=== PATIENT | male | born 1960 | race African-American/Black ===

== ENCOUNTER 2018-10-09 23:47 | Emergency (ER) | payer OTHER ==
[~2018-10-09] VITALS: Ht 165.1 cm; Wt 59.0 kg
--- OUTSIDE RECORDS SUMMARY | 2018-10-09 23:50 | XMS REPORT ---
Author Author [facility] Address Unknown Phone Unavailable Care Team Providers Care Manufacturing Coordinator Name Role Phone RICO HERRERA OBRIEN Unavailable Unavailable ABIEL AGEE Unavailable Unavailable AIMEECASSY Unavailable Unavailable Problems This patient has no known problems. Allergies, Adverse Reactions, Alerts This patient has no known allergies or adverse reactions. Medications This patient has no known medications. Results Test Description Test Time Test Comments Text Results Atomic Results Result Comments LOUIE CARROLL CATH CENTRAL INS W/PORT C 2018-09-14 13:37:00 Reason for Exam:->C25.9 FINAL REPORT Procedure: Chest port placement. History: Pancreatic cancer Operators: Bina Conscious Sedation: Versed 3 mg, fentanyl 150 mcg, (Administered after informed consent was obtained) Vital signs were monitored throughout the procedure by a nurse, and remained stable. Physician intra-service time was 30 minutes. Total fluoroscopy time: 11 seconds Estimated dose reported as ( Ka, r): 0.1 mGy Technique: Informed written consent was obtained. The right neck and chest were prepped. All elements maximal sterile barrier technique was utilized for this procedure, including utilization of sterile scrub solution for skin prep, a large sterile sheet to cover the areas of the patient that were not prepped, and hand hygiene, mask, head covering, and sterile gown for performing radiologist and scrub technologist. Under direct real-time ultrasound guidance the right internal jugular vein was accessed with a micropuncture needle. A 5 [place] sheath and dilator was placed. A 3 J-wire was then advanced and the access site was dilated. A 7 [place] peel-away introducer sheath was then placed. The distal end of the 5 [place] port catheter was then advanced through the peel-away and placed with tip under fluoroscopic control at the atriocaval junction. The proximal end of the catheter was then back tunneled on the anterior chest. A subcutaneous pocket was then made. The catheter was then attached to a single-lumen port which was placed into the pocket and anchored with 2 Monocryl sutures. The port flushed and aspirated easily following placement and was packed with 5cc of Heparin at 100U/cc (total dosage of 500U). The overlying skin was closed with interrupted subcuticular sutures. Steri-strips and dressing was applied. There are no immediate complications. The patient tolerated the procedure well and left the department in the same condition. Findings: 1. Inital ultrasound evaluation prior to port placement showed a patent and compressible right internal jugular vein. An ultrasound image was saved to PACS. 2. Spot radiograph following port placement revealed appropriate positioning with the tip projecting at the cavoatrial junction. No immediate pneumothorax identified. Impression: Successful placement of a single-lumen right-sided chest port using sonographic and fluoroscopic guidance and conscious sedation. The tip is satisfactorily positioned at the atriocaval junction. A "Power" port rated for power CT injections was placed. Signed: Savage Curran MDReport Verified Date/Time: 09/14/2018 13:37:17 Reading Location: [facility] Radiology Reading Room W/PLT COUNT & AUTO DIFFERENTIAL 2018-09-14 11:45:00 WHITE BLOOD CELL COUNT (BEAKER) (test potk=819) 8.0 K/ L 4.0-10.0 RED BLOOD CELL COUNT (BEAKER) (test vxzl=355) 4.34 M/ L 4.20-5.80 HEMOGLOBIN (BEAKER) (test rxnb=748) 12.0 GM/DL 13.0-16.8 HEMATOCRIT (BEAKER) (test yjat=304) 37.9 % 36.0-50.0 MEAN CORPUSCULAR VOLUME (BEAKER) (test qybn=032) 87.3 fL 82.0-99.0 MEAN CORPUSCULAR HEMOGLOBIN (BEAKER) (test saiw=387) 27.6 pg 27.0-33.0 MEAN CORPUSCULAR HEMOGLOBIN CONC (BEAKER) (test rcqe=266) 31.7 GM/DL 32.0-36.0 RED CELL DISTRIBUTION WIDTH (BEAKER) (test mpmt=598) 13.4 % 12.0-15.0 PLATELET COUNT (BEAKER) (test vtwz=818) 314 K/CU MM 150-430 MEAN PLATELET VOLUME (BEAKER) (test kcbg=342) 9.8 fL 6.0-11.5 NUCLEATED RED BLOOD CELLS (BEAKER) (test evvo=178) 0 /100 WBC 0-0 (MANUAL DIFFERENTIAL)2018-09-14 11:45:00* Test Item Value Reference Range Comments NEUTROPHILS - REL (DIFF) (BEAKER) (test yffi=8756) 61 % LYMPHOCYTES - REL (DIFF) (BEAKER) (test jrrh=2221) 12 % MONOCYTES - REL (DIFF) (BEAKER) (test gkla=6907) 10 % EOSINOPHILS - REL (DIFF) (BEAKER) (test higx=6464) 13 % ATYPICAL LYMPHOCYTE - REL (DIFF) (BEAKER) (test nplm=621) 4 % 0-0 NEUTROPHILS - ABS (DIFF) (BEAKER) (test ohtu=1565) 4.88 K/ L 1.80-8.00 LYMPHOCYTES - ABS (DIFF) (BEAKER) (test mkde=7088) 0.96 K/ L 1.48-4.50 MONOCYTES - ABS (DIFF) (BEAKER) (test fiku=9379) 0.80 K/ L 0.00-1.30 EOSINOPHILS - ABS (DIFF) (BEAKER) (test pwwe=9766) 1.04 K/ L 0.00-0.50 ATYPICAL LYMPHOCYTES - ABS (DIFF) (BEAKER) (test rydu=307) 0.32 K/ L 0.00-0.00 TOTAL COUNTED (BEAKER) (test aevs=0970) 100 WBC MORPHOLOGY (BEAKER) (test nezg=925) Normal PLT MORPHOLOGY (BEAKER) (test oenj=375) Normal RBC MORPHOLOGY (BEAKER) (test rwyw=392) Normal [id number] 11:39:00* Test Item Value Reference Range Comments PROTIME (BEAKER) (test wivb=273) 11.1 sec 9.3-12.0 INR (BEAKER) (test uzka=903) 1.0 <=5.9 PARTIAL THROMBOPLASTIN TIME (BEAKER) (test wczu=128) 29.3 sec 23.0-35.0 RECOMMENDED COUMADIN/WARFARIN INR THERAPY RANGESSTANDARD DOSE: 2.0 - 3.0 Inclu francisco: PROPHYLAXIS for venous thrombosis, systemic embolization; TREATMENT for gloria ous thrombosis and/or pulmonary embolus.HIGH RISK: Target INR is 2.5-3.5 for pat ients with mechanical heart valves.Final Information (Auto Output)Final Informat ion (Auto Output)Final Information (Auto Output)POCT-GLUCOSE [id number] 11:10:00* Test Item Value Reference Range Comments POC-GLUCOSE METER (BEAKER) (test qewv=2222) 128 mg/dL 70-110 TESTED AT [facility] [address] [place] [address] POCT-GLUCOSE [id number] 11:35:00* Test Item Value Reference Range Comments POC-GLUCOSE METER (BEAKER) (test wgyh=5484) 218 mg/dL 70-110 TESTED AT [address] [address] HEPATIC FUNCTION [id number] 11:02:00* Test Item Value Reference Range Comments TOTAL PROTEIN (BEAKER) (test lsko=413) 6.8 gm/dL 6.0-8.3 ALBUMIN (BEAKER) (test etms=9101) 3.4 g/dL 3.5-5.0 BILIRUBIN TOTAL (BEAKER) (test uscn=697) 18.4 mg/dL 0.2-1.2 BILIRUBIN DIRECT (BEAKER) (test nmwz=433) 13.0 mg/dL 0.1-0.5 ALKALINE PHOSPHATASE (BEAKER) (test gxmh=730) 1058 U/L 40-150 AST (SGOT) (BEAKER) (test oljk=538) 699 U/L 5-34 ALT (SGPT) (BEAKER) (test lhvc=658) 628 U/L 6-55 Specimen markedly ictericPOCT-GLUCOSE [id number] 08:26:00* Test Item Value Reference Range Comments POC-GLUCOSE METER (BEAKER) (test tuac=9611) 213 mg/dL 70-110 TESTED AT [address] [address] POCT-GLUCOSE [id number] 00:19:00* Test Item Value Reference Range Comments POC-GLUCOSE METER (BEAKER) (test esue=2994) 188 mg/dL 70-110 TESTED AT [address] [address] POCT-GLUCOSE [id number] 08:34:00* Test Item Value Reference Range Comments POC-GLUCOSE METER (BEAKER) (test roch=9796) 119 mg/dL 70-110 TESTED AT [address] [address] HEPATIC FUNCTION [id number] 07:37:00* Test Item Value Reference Range Comments TOTAL PROTEIN (BEAKER) (test wqph=707) 6.4 gm/dL 6.0-8.3 ALBUMIN (BEAKER) (test xvbf=6169) 3.4 g/dL 3.5-5.0 BILIRUBIN TOTAL (BEAKER) (test iawq=785) 18.6 mg/dL 0.2-1.2 BILIRUBIN DIRECT (BEAKER) (test jhgd=957) 13.7 mg/dL 0.1-0.5 ALKALINE PHOSPHATASE (BEAKER) (test hbxp=786) 921 U/L 40-150 AST (SGOT) (BEAKER) (test zpmx=604) 706 U/L 5-34 ALT (SGPT) (BEAKER) (test taif=423) 558 U/L 6-55 Specimen markedly ictericPOCT-GLUCOSE [id number] 17:55:00* Test Item Value Reference Range Comments POC-GLUCOSE METER (BEAKER) (test bgrt=3938) 122 mg/dL 70-110 TESTED AT [place] [id number] [place], [id number] 16:29:00INTRA OP IMAGINGReason for exam:->obstructive jaundiceFINAL REPORT ERCP 3 views 02/21/2018 4:29 PM CLINICAL HISTORY: Instrument localization COMPARISON: None available IMPRESSION: Please correlate imaging report findings with the procedure note prepared by Dr. Stephenson, as an intra-procedure imaging consultation was not requested. Reported fluoroscopy time: 31.3 seconds. Signed: Tee Mercer Verified Date/Time: 02/21/2018 16:29:24 Reading Location: [address] Neuro Reading Room -GLUCOSE [id number] 16:28:00* Test Item Value Reference Range Comments POC-GLUCOSE METER (BEAKER) (test yvdr=0523) 131 mg/dL 70-110 TESTED AT [facility] [address] [facility] [facility] [address] POCT-GLUCOSE [id number] 10:11:00* Test Item Value Reference Range Comments POC-GLUCOSE METER (BEAKER) (test ggnn=7307) 146 mg/dL 70-110 TESTED AT [facility] [address] [address] URINALYSIS W/ [id number] 07:40:00* Test Item Value Reference Range Comments COLOR (BEAKER) (test rpgb=278) Dark Yellow CLARITY (BEAKER) (test undv=894) Clear SPECIFIC GRAVITY UA (BEAKER) (test etzk=364) 1.019 1.001-1.035 PH UA (BEAKER) (test ijus=390) 7.0 5.0-8.0 PROTEIN UA (BEAKER) (test shxu=211) 20 mg/dL Negative GLUCOSE UA (BEAKER) (test tvcj=498) Negative Negative KETONES UA (BEAKER) (test gqxb=077) 80 mg/dL Negative BILIRUBIN UA (BEAKER) (test rxda=502) Positive Negative BLOOD UA (BEAKER) (test fpzu=556) Negative Negative NITRITE UA (BEAKER) (test yyfv=737) Negative Negative LEUKOCYTE ESTERASE UA (BEAKER) (test uiwq=234) Negative Negative UROBILINOGEN UA (BEAKER) (test mfdi=244) 0.2 mg/dL 0.2-1.0 RBC UA (BEAKER) (test ypvl=945) < /HPF WBC UA (BEAKER) (test rybr=272) 1 /HPF MUCUS (BEAKER) (test ctip=0611) Occasional CALCIUM OXALATE CRYSTALS (BEAKER) (test tnlo=142) Rare AMORPHOUS CRYSTALS (BEAKER) (test nmuq=4984) Rare SOURCE(BEAKER) (test kyfs=5023) Urine, Voided CT, [id number] 07:23:00FINAL REPORT CT scan of the abdomen and pelvis. Clinical history: Lower abdominal pain, possible small bowel obstruction, possible diverticulitis. COMPARISON STUDY: CT scan of the abdomen and pelvis dated January 25, 2018. TECHNIQUE: Contiguous helical slices were acquired through the abdomen and pelvis post administration of intravenous contrast. No oral contrast was administered. This exam was performed according to our department dose optimization program which includes automated exposure control, adjustment of the mA and/or kV according to the patient's size and/or use of iterative reconstruction technique. FINDINGS: Multiple small nodules are seen in the lung bases, as noted on recent chest CT. They include a 4 mm nodule in the right middle lobe, 5 mm nodule in the right lower lobe and several other punctate nodules. Atelectasis or consolidation is seen in the lung bases. The liver demonstrates no focal masses. A stent is seen in the CBD with mild to moderate intrahepatic biliary dilatation. The portal vein is widely patent measuring 1.4 cm. Dilatation of the pancreatic duct is seen measuring up to 4 mm with a 3.0 x 2.7 cm mass in the pancreatic head identified. The spleen, adrenal glands and kidneys are unremarkable. Some gallbladder wall thickening is identified. There are no dilated loops of bowel seen to suggest obstruction. No evidence of appendicitis is seen. There is no free fluid or free air. Indeterminant peripancreatic lymph nodes are seen measuring up to 1.2 cm in short axis. The aorta is normal in caliber. No small bowel obstruction or diverticulitis are seen. Bone windows demonstrate degenerative changes. IMPRE SSION:1. Nodules in the lung bases. Please refer to recent chest CT. This is lashae picious for metastatic disease.2. Stent in the CBD with mild to moderate biliary dilatation, more pronounced than on previous.3. Mass in the pancreatic head, as on previous.4. No evidence of diverticulitis or small bowel obstruction. Signed: Forest Araiza MDReport Verified Date/Time: 02/21/2018 07:23:40 Reading Loca tion: [facility] B1 C013X [facility] Consult Reading Room TIC FUNCTION [id number] 06:16:00* Test Item Value Reference Range Comments TOTAL PROTEIN (BEAKER) (test qgmc=055) 6.9 gm/dL 6.0-8.3 ALBUMIN (BEAKER) (test thoo=9135) 3.8 g/dL 3.5-5.0 BILIRUBIN TOTAL (BEAKER) (test tyuq=047) 19.1 mg/dL 0.2-1.2 BILIRUBIN DIRECT (BEAKER) (test davb=189) 13.1 mg/dL 0.1-0.5 ALKALINE PHOSPHATASE (BEAKER) (test exmr=268) 698 U/L 40-150 AST (SGOT) (BEAKER) (test xdsp=783) 471 U/L 5-34 ALT (SGPT) (BEAKER) (test katw=615) 429 U/L 6-55 Specimen markedly [id number] 06:16:00* Test Item Value Reference Range Comments LIPASE (BEAKER) (test izes=942) 5 U/L 8-78 Specimen markedly ictericBASIC METABOLIC [id number] 05:10:00* Test Item Value Reference Range Comments SODIUM (BEAKER) (test fjuz=802) 138 meq/L 136-145 POTASSIUM (BEAKER) (test vfuq=366) 3.5 meq/L 3.5-5.1 CHLORIDE (BEAKER) (test gqwa=196) 98 meq/L 98-107 CO2 (BEAKER) (test bkft=269) 29 meq/L 22-29 BLOOD UREA NITROGEN (BEAKER) (test gxfb=295) 7 mg/dL 7-21 CREATININE (BEAKER) (test uhjt=590) 0.85 mg/dL 0.57-1.25 GLUCOSE RANDOM (BEAKER) (test zqyr=654) 159 mg/dL 70-105 CALCIUM (BEAKER) (test yxld=057) 9.3 mg/dL 8.4-10.2 EGFR (BEAKER) (test osmq=2347) 113 mL/min/1.73 sq m ESTIMATED GFR IS NOT ACCURATE CREATININE CLEARANCE IN PREDICTING GLOMERULAR FILTRATION RATE. ESTIMATED GFR IS NOT APPLICABLE FOR DIALYSIS PATIENTS. Specimen markedly ictericCBC W/PLT COUNT & AUTO [id number] 04:52:00 * Test Item Value Reference Range Comments WHITE BLOOD CELL COUNT (BEAKER) (test bbuw=148) 9.2 K/ L 3.5-10.5 RED BLOOD CELL COUNT (BEAKER) (test dywk=066) 3.85 M/ L 4.63-6.08 HEMOGLOBIN (BEAKER) (test mgcv=906) 11.3 GM/DL 13.7-17.5 HEMATOCRIT (BEAKER) (test znvi=181) 33.8 % 40.1-51.0 MEAN CORPUSCULAR VOLUME (BEAKER) (test cpxx=194) 87.8 fL 79.0-92.2 MEAN CORPUSCULAR HEMOGLOBIN (BEAKER) (test plko=780) 29.4 pg 25.7-32.2 MEAN CORPUSCULAR HEMOGLOBIN CONC (BEAKER) (test pngl=648) 33.4 GM/DL 32.3-36.5 RED CELL DISTRIBUTION WIDTH (BEAKER) (test npyu=287) 17.1 % 11.6-14.4 PLATELET COUNT (BEAKER) (test ijzc=034) 255 K/CU MM 150-450 MEAN PLATELET VOLUME (BEAKER) (test ouqz=833) 10.1 fL 9.4-12.4 NUCLEATED RED BLOOD CELLS (BEAKER) (test fneq=798) 0 /100 WBC 0-0 NEUTROPHILS RELATIVE PERCENT (BEAKER) (test jvve=883) 77 % LYMPHOCYTES RELATIVE PERCENT (BEAKER) (test skna=445) 12 % MONOCYTES RELATIVE PERCENT (BEAKER) (test qumn=598) 10 % EOSINOPHILS RELATIVE PERCENT (BEAKER) (test czeg=881) 1 % BASOPHILS RELATIVE PERCENT (BEAKER) (test uope=190) 0 % NEUTROPHILS ABSOLUTE COUNT (BEAKER) (test jjna=208) 7.10 K/ L 1.78-5.38 LYMPHOCYTES ABSOLUTE COUNT (BEAKER) (test jsiq=307) 1.07 K/ L 1.32-3.57 MONOCYTES ABSOLUTE COUNT (BEAKER) (test eeni=216) 0.91 K/ L 0.30-0.82 EOSINOPHILS ABSOLUTE COUNT (BEAKER) (test uvtx=739) 0.12 K/ L 0.04-0.54 BASOPHILS ABSOLUTE COUNT (BEAKER) (test nxxy=861) 0.02 K/ L 0.01-0.08 IMMATURE GRANULOCYTES-RELATIVE PERCENT (BEAKER) (test fkbp=2391) 0 % 0-1 TISSUE [id number] 16:16:00Surgical Pathology Report Case: [id number] Authorizing Provider: Herrera Akhtar MD Collected: 01/31/201849 Ordering Location: [address] Received: 01/31/2018748 Service Pathologist: Toby Conte MD Specimen: Lung, Right LUNG, RIGHT, BIOPSY OF MASS- ADENOCARCINOMA, FAVOR METASTASES FROM PANCREATIC PRIMARY (SEE COMMENT) Signing Pathologist Direct Phone Line: [phone] signed by Toby Conte MD on 02/01/2018 at 4:16 PMWith the history of pancreatic adenocarcinoma, the clinical presentation of multiple, bilateral nodules, the histologic features and immunohistochemical stains are compatible with a metastatic pancreatic adenocarcinoma.32700, 03000, 57711 R5Qfpybesd lung nodules, pancreatic massCT biopsy lungThe specimen is received in a formalin- filled container and labeled with the patient's information and labeled "CT biopsy lung biopsy" consists of multiple fragments of off white tissue ranging from less than 0.1 to 0.3 cm, submitted entirely A1. CG/pl The interpretation of this case included the use of immunohistochemistry or special stains. Immunohistochemistry technical testing was performed at [facility], Pathology Laboratory where it was developed and its performance characteristics were determined. It has not been cleared or approved by the U.S. Food and Drug Administration. The FDA has determined that such clearance or approval is not necessary. The test is used for clinical purposes. It should not be regarded as investigational or for research. This laboratory is certified under the Clinical Laboratory Improvement Amendments of 1988 (CLIA-88) as quali fied to perform high complexity clinical laboratory testing.LZ2-tizzsedhSV33-iuw ativeCDX-2- patchy positiveTTF1- negativeNapsin E-srfezlrkYA65-bgwuileaHD99yafthihoIZ72-gaftlcovVQ47-slmc tive controls are adequateFINE NEEDLE ASPIRATION BY [id number] 15:33:00 Medical Cytology Report Case: [id number] Authorizing Provider: Ritika Schaffer MD Collected: 01/26/2018 [id number] Ordering Location: [address] Received: 01/26/2018 1912 Ser vice Patholog ist: Toby Conte MD Specimen: Pancreas, HOP mass FNA in CRR HEAD OF PANCREAS MASS, FNA BY CLINICIAN (CYTOSPINS AND CELL BLOCK OF ASPIRATE): - ADENOCARCINOMA - CHRONIC PANCREATITIS, EXTENSIVE Signing Pathologist Direct Phone Line: [phone] signed by Toby Conte MD on 01/31/2018 at 3:33 PMThe cell block has extensive chronic pancreatitis and few fragments of invasive, well-differentiated adenocarcin juan pablo.59516, 690007.2 x 2.3 cm irregular mass identified in the head of pancreasHE AD OF PANCREAS MASS FNAPrepared cell block(A2) and 4 cytospins from 15 ml cytori ch red fixative sampleCollected: [id number]: [id number] [facility], Department of Pathology, [address] [place] [address], Tel [phone] [facility] Center, Department of [facility]ology, [address] [place] [address], KmdcfdChapman [facility] Center, D epartment of Pathology, [address] [place] [address], POCT-GLUCOSE [id number] 07:45:00* Test Item Value Reference Range Comments POC-GLUCOSE METER (BEAKER) (test tvdq=1984) 190 mg/dL 70-110 TESTED AT [place] [address] POCT-GLUCOSE [id number] 21:47:00* Test Item Value Reference Range Comments POC-GLUCOSE METER (BEAKER) (test vnfm=5228) 289 mg/dL 70-110 TESTED AT [place] [address] [place], BIOPSY, [id number] 18:36:00rightReason for exam:->multiple lung nodule, pancreatic mass.FINAL REPORT PROCEDURE: CT-guided core biopsy of right upper lobe pulmonary nodule. Dose modulation, iterative reconstruction, and/or weight-based adjustment of the mA/kV was utilized to reduce the radiation dose to as low as reasonably achievable. INDICATION: 57-year-old man with pancreatic mass and lung nodules. COMPARISON: Chest CT 01/27/2018. SEDATION: Intravenous moderate sedation was administered by radiology nursing and monitored under the direction of the undersigned radiologist. The patient's vital signs were monitored throughout the procedure and recorded in the patient's medical record by radiology nursing. Total intraservice time of sedation was 45 minutes. MEDICATIONS: 1 mg Versed, 50 mcg fentanyl DESCRIPTION: After obtaining informed written consent, the patient was brought to the CT scanner and placed in the prone position. Preliminary CT scan of the chest revealed multiple small nodules in both lungs, the largest is a 1.4 x 0.8 cm conglomerate nodule in the posterior right upper lobe. This nodule was targeted for biopsy. The overlying skin was prepped and draped in the usual, sterile fashion and local 1% lidocaine anesthesia was administered. Under CT guidance, a 19-gauge introducer needle was inserted into the right back and placed into the periphery of the nodule via an intercostal approach. The inner stylette was removed, and a 20-gauge Temno core biopsy needle was passed through the introducer and into the nodule. Four core biopsy samples of the nodule were obtained. Postprocedure CT scan showed a tiny right pneumothorax, which remained stable on a subsequent CT scan obtained 10 minutes later. Patient was stable throughout the procedure. IMPRESSION:CT-guided core biopsy right upper lobe pulmonary nodule. Tiny post procedure right pneumothorax. Signed: Primo Earl v MDReport Verified Date/Time: 01/30/2018 18:36:01 Reading Location: [place] [address] Body Reading Room -GLUCOSE [id number] 17:21:00* Test Item Value Reference Range Comments POC-GLUCOSE METER (BEAKER) (test lmfd=5468) 126 mg/dL 70-110 TESTED AT [facility] [address] [address] RAD, CHEST, PA OR AP, 1 [id number] 16:58:00Reason for exam:->post lung biopsyShould this be performed at the bedside?->NoFINAL REPORT Technique: Single view of the chest FINDINGS: No definite pneumothorax status post recent biopsy of a right lung nodule. Tiny scattered lung nodules are noted which are better seen on the recent CT. Cardiac silhouette is enlarged. Aortic calcifications are seen. Signed: Savage Curran MDReport Verified Date/Time: 01/30/2018 16:58:51 Reading Location: [facility] Radiology Reading Room - GLUCOSE [id number] 11:50:00* Test Item Value Reference Range Comments POC-GLUCOSE METER (BEAKER) (test tjdt=1834) 144 mg/dL 70-110 TESTED AT [address] [address] PT/[id number] 10:24:00* Test Item Value Reference Range Comments PROTIME (BEAKER) (test lpzs=862) 13.1 seconds 11.7-14.7 INR (BEAKER) (test fzlv=177) 1.0 <=5.9 PARTIAL THROMBOPLASTIN TIME (BEAKER) (test pmye=088) 30.6 seconds 22.5-36.0 RECOMMENDED COUMADIN/WARFARIN INR THERAPY RANGESSTANDARD DOSE: 2.0 - 3.0 Inclu francisco: PROPHYLAXIS for venous thrombosis, systemic embolization; TREATMENT for gloria ous thrombosis and/or pulmonary embolus.HIGH RISK: Target INR is 2.5-3.5 for pat ients with mechanical heart valves.POCT-GLUCOSE [id number] 08:00:00* Test Item Value Reference Range Comments POC-GLUCOSE METER (BEAKER) (test ukip=3250) 183 mg/dL 70-110 TESTED AT [facility] [address] [address] [id number] 07:37:00* Test Item Value Reference Range Comments MAGNESIUM (BEAKER) (test bxaa=595) 1.7 mg/dL 1.6-2.6 COMPREHENSIVE METABOLIC [id number] 07:37:00* Test Item Value Reference Range Comments TOTAL PROTEIN (BEAKER) (test lddo=295) 5.8 gm/dL 6.0-8.3 ALBUMIN (BEAKER) (test fjgk=0844) 3.1 g/dL 3.5-5.0 ALKALINE PHOSPHATASE (BEAKER) (test xbip=703) 385 U/L 40-150 BILIRUBIN TOTAL (BEAKER) (test pybg=098) 10.0 mg/dL 0.2-1.2 SODIUM (BEAKER) (test mwar=045) 138 meq/L 136-145 POTASSIUM (BEAKER) (test zrnn=000) 3.6 meq/L 3.5-5.1 CHLORIDE (BEAKER) (test rzwx=246) 107 meq/L 98-107 CO2 (BEAKER) (test nfeh=895) 24 meq/L 22-29 BLOOD UREA NITROGEN (BEAKER) (test mqzk=040) 3 mg/dL 7-21 CREATININE (BEAKER) (test ajxa=421) 0.74 mg/dL 0.57-1.25 GLUCOSE RANDOM (BEAKER) (test aodi=860) 177 mg/dL 70-105 CALCIUM (BEAKER) (test hwtc=464) 8.6 mg/dL 8.4-10.2 AST (SGOT) (BEAKER) (test olsi=980) 103 U/L 5-34 ALT (SGPT) (BEAKER) (test xhqn=531) 214 U/L 6-55 EGFR (BEAKER) (test mfgm=3879) 133 mL/min/1.73 sq m ESTIMATED GFR IS NOT ACCURATE CREATININE CLEARANCE IN PREDICTING GLOMERULAR FILTRATION RATE. ESTIMATED GFR IS NOT APPLICABLE FOR DIALYSIS PATIENTS. Specimen moderately ictericCBC W/PLT COUNT & AUTO [id number] 06:29:00* Test Item Value Reference Range Comments WHITE BLOOD CELL COUNT (BEAKER) (test bipe=808) 6.2 K/ L 3.5-10.5 RED BLOOD CELL COUNT (BEAKER) (test jywg=920) 3.87 M/ L 4.63-6.08 HEMOGLOBIN (BEAKER) (test itlv=167) 10.1 GM/DL 13.7-17.5 HEMATOCRIT (BEAKER) (test vmbn=396) 34.5 % 40.1-51.0 MEAN CORPUSCULAR VOLUME (BEAKER) (test ojwc=415) 89.1 fL 79.0-92.2 MEAN CORPUSCULAR HEMOGLOBIN (BEAKER) (test bjbr=067) 26.1 pg 25.7-32.2 MEAN CORPUSCULAR HEMOGLOBIN CONC (BEAKER) (test habn=429) 29.3 GM/DL 32.3-36.5 RED CELL DISTRIBUTION WIDTH (BEAKER) (test rbbe=990) 18.6 % 11.6-14.4 PLATELET COUNT (BEAKER) (test inpd=511) 299 K/CU MM 150-450 MEAN PLATELET VOLUME (BEAKER) (test nqxc=528) 10.8 fL 9.4-12.4 NUCLEATED RED BLOOD CELLS (BEAKER) (test ydgs=508) 0 /100 WBC 0-0 NEUTROPHILS RELATIVE PERCENT (BEAKER) (test xduc=941) 61 % LYMPHOCYTES RELATIVE PERCENT (BEAKER) (test qrmm=927) 21 % MONOCYTES RELATIVE PERCENT (BEAKER) (test dscw=549) 10 % EOSINOPHILS RELATIVE PERCENT (BEAKER) (test druh=119) 7 % BASOPHILS RELATIVE PERCENT (BEAKER) (test yaun=642) 1 % NEUTROPHILS ABSOLUTE COUNT (BEAKER) (test ofjq=598) 3.81 K/ L 1.78-5.38 LYMPHOCYTES ABSOLUTE COUNT (BEAKER) (test dqqn=624) 1.28 K/ L 1.32-3.57 MONOCYTES ABSOLUTE COUNT (BEAKER) (test vysy=622) 0.61 K/ L 0.30-0.82 EOSINOPHILS ABSOLUTE COUNT (BEAKER) (test ocug=931) 0.44 K/ L 0.04-0.54 BASOPHILS ABSOLUTE COUNT (BEAKER) (test rppj=593) 0.04 K/ L 0.01-0.08 IMMATURE GRANULOCYTES-RELATIVE PERCENT (BEAKER) (test aaif=9862) 1 % 0-1 POCT-GLUCOSE [id number] 21:14:00* Test Item Value Reference Range Comments POC-GLUCOSE METER (BEAKER) (test ddif=4596) 158 mg/dL 70-110 TESTED AT [address] [address] POCT-GLUCOSE [id number] 17:35:00* Test Item Value Reference Range Comments POC-GLUCOSE METER (BEAKER) (test qjlw=0260) 223 mg/dL 70-110 TESTED AT [address] [address] POCT-GLUCOSE [id number] 12:40:00* Test Item Value Reference Range Comments POC-GLUCOSE METER (BEAKER) (test ikhe=8994) 246 mg/dL 70-110 TESTED AT [address] [address] POCT-GLUCOSE [id number] 08:31:00* Test Item Value Reference Range Comments POC-GLUCOSE METER (BEAKER) (test kqqn=5957) 183 mg/dL 70-110 TESTED AT [address] [address] [id number] 07:28:00* Test Item Value Reference Range Comments MAGNESIUM (BEAKER) (test nnjt=005) 1.8 mg/dL 1.6-2.6 COMPREHENSIVE METABOLIC [id number] 07:28:00* Test Item Value Reference Range Comments TOTAL PROTEIN (BEAKER) (test xnck=257) 5.9 gm/dL 6.0-8.3 ALBUMIN (BEAKER) (test hguo=1422) 3.1 g/dL 3.5-5.0 ALKALINE PHOSPHATASE (BEAKER) (test nwow=630) 447 U/L 40-150 BILIRUBIN TOTAL (BEAKER) (test elgt=015) 10.7 mg/dL 0.2-1.2 SODIUM (BEAKER) (test mosd=480) 141 meq/L 136-145 POTASSIUM (BEAKER) (test fsyb=645) 3.3 meq/L 3.5-5.1 CHLORIDE (BEAKER) (test cqfz=285) 107 meq/L 98-107 CO2 (BEAKER) (test lzws=669) 28 meq/L 22-29 BLOOD UREA NITROGEN (BEAKER) (test sgpi=076) 4 mg/dL 7-21 CREATININE (BEAKER) (test fglx=022) 0.72 mg/dL 0.57-1.25 GLUCOSE RANDOM (BEAKER) (test drel=211) 160 mg/dL 70-105 CALCIUM (BEAKER) (test bflb=277) 8.9 mg/dL 8.4-10.2 AST (SGOT) (BEAKER) (test mxxj=838) 86 U/L 5-34 ALT (SGPT) (BEAKER) (test uhmu=256) 223 U/L 6-55 EGFR (BEAKER) (test ysjg=9906) 137 mL/min/1.73 sq m ESTIMATED GFR IS NOT ACCURATE CREATININE CLEARANCE IN PREDICTING GLOMERULAR FILTRATION RATE. ESTIMATED GFR IS NOT APPLICABLE FOR DIALYSIS PATIENTS. Specimen moderately ictericCBC W/PLT COUNT & AUTO [id number] 07:02:00* Test Item Value Reference Range Comments WHITE BLOOD CELL COUNT (BEAKER) (test swuv=313) 6.3 K/ L 3.5-10.5 RED BLOOD CELL COUNT (BEAKER) (test evef=345) 4.09 M/ L 4.63-6.08 HEMOGLOBIN (BEAKER) (test dgeb=306) 10.6 GM/DL 13.7-17.5 HEMATOCRIT (BEAKER) (test ucta=421) 36.7 % 40.1-51.0 MEAN CORPUSCULAR VOLUME (BEAKER) (test kmsi=845) 89.7 fL 79.0-92.2 MEAN CORPUSCULAR HEMOGLOBIN (BEAKER) (test dniq=597) 25.9 pg 25.7-32.2 MEAN CORPUSCULAR HEMOGLOBIN CONC (BEAKER) (test ewsh=852) 28.9 GM/DL 32.3-36.5 RED CELL DISTRIBUTION WIDTH (BEAKER) (test gkgp=284) 19.3 % 11.6-14.4 PLATELET COUNT (BEAKER) (test pypn=288) 301 K/CU MM 150-450 MEAN PLATELET VOLUME (BEAKER) (test srmu=614) 10.9 fL 9.4-12.4 NUCLEATED RED BLOOD CELLS (BEAKER) (test flct=185) 0 /100 WBC 0-0 NEUTROPHILS RELATIVE PERCENT (BEAKER) (test rocd=441) 61 % LYMPHOCYTES RELATIVE PERCENT (BEAKER) (test hjrz=894) 21 % MONOCYTES RELATIVE PERCENT (BEAKER) (test lpeu=834) 10 % EOSINOPHILS RELATIVE PERCENT (BEAKER) (test qbcn=219) 8 % BASOPHILS RELATIVE PERCENT (BEAKER) (test frdt=227) 0 % NEUTROPHILS ABSOLUTE COUNT (BEAKER) (test eyem=937) 3.85 K/ L 1.78-5.38 LYMPHOCYTES ABSOLUTE COUNT (BEAKER) (test ltuh=224) 1.31 K/ L 1.32-3.57 MONOCYTES ABSOLUTE COUNT (BEAKER) (test runy=988) 0.62 K/ L 0.30-0.82 EOSINOPHILS ABSOLUTE COUNT (BEAKER) (test uxjw=913) 0.49 K/ L 0.04-0.54 BASOPHILS ABSOLUTE COUNT (BEAKER) (test mrji=927) 0.02 K/ L 0.01-0.08 IMMATURE GRANULOCYTES-RELATIVE PERCENT (BEAKER) (test qyjx=0991) 1 % 0-1 POCT-GLUCOSE [id number] 23:55:00* Test Item Value Reference Range Comments POC-GLUCOSE METER (BEAKER) (test tjhn=6877) 216 mg/dL 70-110 TESTED AT [facility] [address] [facility] [address] POCT-GLUCOSE [id number] 21:42:00* Test Item Value Reference Range Comments POC-GLUCOSE METER (BEAKER) (test yczj=0575) 293 mg/dL 70-110 TESTED AT [facility] [address] [facility] [address] POCT-GLUCOSE [id number] 18:08:00* Test Item Value Reference Range Comments POC-GLUCOSE METER (BEAKER) (test fwpg=4635) 200 mg/dL 70-110 TESTED AT [facility] [address] [address] POCT-GLUCOSE [id number] 12:19:00* Test Item Value Reference Range Comments POC-GLUCOSE METER (BEAKER) (test hyeb=6135) 235 mg/dL 70-110 TESTED AT [facility] [address] [address] POCT-GLUCOSE [id number] 08:05:00* Test Item Value Reference Range Comments POC-GLUCOSE METER (BEAKER) (test uyev=6719) 164 mg/dL 70-110 TESTED AT [facility] [address] [address] [id number] 07:57:00* Test Item Value Reference Range Comments MAGNESIUM (BEAKER) (test iakh=971) 1.7 mg/dL 1.6-2.6 COMPREHENSIVE METABOLIC [id number] 07:57:00* Test Item Value Reference Range Comments TOTAL PROTEIN (BEAKER) (test njkz=702) 6.3 gm/dL 6.0-8.3 ALBUMIN (BEAKER) (test njdk=1229) 3.3 g/dL 3.5-5.0 ALKALINE PHOSPHATASE (BEAKER) (test fvjr=078) 519 U/L 40-150 BILIRUBIN TOTAL (BEAKER) (test twsd=890) 13.9 mg/dL 0.2-1.2 SODIUM (BEAKER) (test hwpo=185) 138 meq/L 136-145 POTASSIUM (BEAKER) (test yfgh=412) 3.7 meq/L 3.5-5.1 CHLORIDE (BEAKER) (test ahog=244) 105 meq/L 98-107 CO2 (BEAKER) (test uhdr=808) 28 meq/L 22-29 BLOOD UREA NITROGEN (BEAKER) (test fbky=741) 5 mg/dL 7-21 CREATININE (BEAKER) (test qkyt=512) 0.77 mg/dL 0.57-1.25 GLUCOSE RANDOM (BEAKER) (test ppoq=008) 154 mg/dL 70-105 CALCIUM (BEAKER) (test udbi=287) 9.1 mg/dL 8.4-10.2 AST (SGOT) (BEAKER) (test juqz=818) 114 U/L 5-34 ALT (SGPT) (BEAKER) (test dhhf=563) 283 U/L 6-55 EGFR (BEAKER) (test scsp=9494) 127 mL/min/1.73 sq m ESTIMATED GFR IS NOT ACCURATE CREATININE CLEARANCE IN PREDICTING GLOMERULAR FILTRATION RATE. ESTIMATED GFR IS NOT APPLICABLE FOR DIALYSIS PATIENTS. Specimen markedly ictericCBC W/PLT COUNT & AUTO [id number] 07:47:00 * Test Item Value Reference Range Comments WHITE BLOOD CELL COUNT (BEAKER) (test cznj=519) 6.6 K/ L 3.5-10.5 RED BLOOD CELL COUNT (BEAKER) (test rjef=020) 4.36 M/ L 4.63-6.08 HEMOGLOBIN (BEAKER) (test wpws=699) 11.4 GM/DL 13.7-17.5 HEMATOCRIT (BEAKER) (test aoer=312) 38.4 % 40.1-51.0 MEAN CORPUSCULAR VOLUME (BEAKER) (test lnhm=311) 88.1 fL 79.0-92.2 MEAN CORPUSCULAR HEMOGLOBIN (BEAKER) (test oosj=560) 26.1 pg 25.7-32.2 MEAN CORPUSCULAR HEMOGLOBIN CONC (BEAKER) (test bzun=723) 29.7 GM/DL 32.3-36.5 RED CELL DISTRIBUTION WIDTH (BEAKER) (test zvtg=188) 21.2 % 11.6-14.4 PLATELET COUNT (BEAKER) (test wshb=382) 299 K/CU MM 150-450 MEAN PLATELET VOLUME (BEAKER) (test dmen=318) 10.8 fL 9.4-12.4 NUCLEATED RED BLOOD CELLS (BEAKER) (test cfpy=174) 0 /100 WBC 0-0 NEUTROPHILS RELATIVE PERCENT (BEAKER) (test wbdm=923) 62 % LYMPHOCYTES RELATIVE PERCENT (BEAKER) (test zvmg=804) 19 % MONOCYTES RELATIVE PERCENT (BEAKER) (test uhhr=637) 11 % EOSINOPHILS RELATIVE PERCENT (BEAKER) (test zyvf=550) 8 % BASOPHILS RELATIVE PERCENT (BEAKER) (test jkmu=491) 0 % NEUTROPHILS ABSOLUTE COUNT (BEAKER) (test xzez=067) 4.09 K/ L 1.78-5.38 LYMPHOCYTES ABSOLUTE COUNT (BEAKER) (test ejeq=944) 1.22 K/ L 1.32-3.57 MONOCYTES ABSOLUTE COUNT (BEAKER) (test nyhw=006) 0.75 K/ L 0.30-0.82 EOSINOPHILS ABSOLUTE COUNT (BEAKER) (test qixl=060) 0.50 K/ L 0.04-0.54 BASOPHILS ABSOLUTE COUNT (BEAKER) (test fcvb=992) 0.02 K/ L 0.01-0.08 IMMATURE GRANULOCYTES-RELATIVE PERCENT (BEAKER) (test xrem=8072) 1 % 0-1 POCT-GLUCOSE [id number] 21:13:00* Test Item Value Reference Range Comments POC-GLUCOSE METER (BEAKER) (test qhqw=9890) 136 mg/dL 70-110 TESTED AT [facility] [address] [address] POCT-GLUCOSE [id number] 17:49:00* Test Item Value Reference Range Comments POC-GLUCOSE METER (BEAKER) (test krmu=9870) 201 mg/dL 70-110 TESTED AT [facility] [address] [address] POCT-GLUCOSE [id number] 12:56:00* Test Item Value Reference Range Comments POC-GLUCOSE METER (BEAKER) (test fica=9515) 265 mg/dL 70-110 TESTED AT [place] [id number] [facility] [address] [address], CHEST, WITH [id number] 12:31:00Reason for exam:->pancreatic mass , cancer suspectedWhat is the patient's sedation requirement?->No SedationFINAL REPORT HISTORY: Neoplasm: chest, metastatic, suspec tedpancreatic mass , cancer suspected COMPARISON : None Technique : Multiple axi al images of the chest were performed from the lung apices to the lung bases wit h the administration of IV contrast. Images were presented in both the lung and soft tissue windows. This exam was performed according to our departmental dose optimization program which includes automated exposure control, adjustment of th e mA and/or kV according to patient size and/or use of iterative reconstructive technique. Comment: The thyroid gland is within normal limits. There is no hilar , mediastinal or axillary lymphadenopathy. There is coronary atherosclerosis. Th e visualized portions of the liver, spleen, adrenal glands and kidneys are withi n normal limits. There is a partially visualized biliary stent. There is also a partially visualized mass in the pancreatic head. Please refer to the CT of the abdomen 01/17/2018 for further information. There is also some pancreatic ductal dilatation. Multilevel degenerative disc changes of the visualized thoracolumbar spine are seen. There are some scattered areas of some linear subsegmental ate lectasis versus scarring. There are numerous bilateral pulmonary nodules. The la rgest nodule in the left lung is seen in the superior segment of the left lower lobe measuring up to 0.8 cm. The largest nodule in the right lung is seen in the posterior segment of the right upper lobe measuring up to 1.4 x 0.8 cm and has a bilobed appearance. These nodules are nonspecific. However, given the patient's clinical history, findings are most concerning for metastatic disease. An infe ctious/inflammatory processes is also in the differential. There is no pleural e ffusion, pneumothorax or infiltrate. Impression: Multiple bilateral pulmonary n odules with the largest in the right upper lobe measuring up to 1.4 x 0.8 cm. Fi ndings are most concerning for metastatic disease. Signed: Shoaib Sanchez MDReport Verified Date/Time: 01/27/2018 12:31:01 Reading Location: [facility] Diagnostic Imag ing Reading Room - [place] [address] -GLUCOSE [id number] 08:05:00* Test Item Value Reference Range Comments POC-GLUCOSE METER (BEAKER) (test uezw=8261) 94 mg/dL 70-110 TESTED AT [facility] [address] [address] COMPREHENSIVE METABOLIC [id number] 06:46:00* Test Item Value Reference Range Comments TOTAL PROTEIN (BEAKER) (test vpod=232) 6.4 gm/dL 6.0-8.3 ALBUMIN (BEAKER) (test ajhu=3304) 3.5 g/dL 3.5-5.0 ALKALINE PHOSPHATASE (BEAKER) (test vipt=914) 595 U/L 40-150 BILIRUBIN TOTAL (BEAKER) (test lnal=285) 24.2 mg/dL 0.2-1.2 SODIUM (BEAKER) (test qtza=951) 138 meq/L 136-145 POTASSIUM (BEAKER) (test ivpd=808) 4.4 meq/L 3.5-5.1 CHLORIDE (BEAKER) (test wplj=510) 103 meq/L 98-107 CO2 (BEAKER) (test xrgv=575) 24 meq/L 22-29 BLOOD UREA NITROGEN (BEAKER) (test utqu=710) 9 mg/dL 7-21 CREATININE (BEAKER) (test mhlq=733) 0.82 mg/dL 0.57-1.25 GLUCOSE RANDOM (BEAKER) (test tahe=657) 91 mg/dL 70-105 CALCIUM (BEAKER) (test pvwt=315) 9.5 mg/dL 8.4-10.2 AST (SGOT) (BEAKER) (test upcz=451) 203 U/L 5-34 ALT (SGPT) (BEAKER) (test yjji=700) 383 U/L 6-55 EGFR (BEAKER) (test lnkg=6285) 118 mL/min/1.73 sq m ESTIMATED GFR IS NOT ACCURATE CREATININE CLEARANCE IN PREDICTING GLOMERULAR FILTRATION RATE. ESTIMATED GFR IS NOT APPLICABLE FOR DIALYSIS PATIENTS. Specimen markedly ictericCBC W/PLT COUNT & AUTO [id number] 06:18:00 * Test Item Value Reference Range Comments WHITE BLOOD CELL COUNT (BEAKER) (test jqit=665) 9.9 K/ L 3.5-10.5 RED BLOOD CELL COUNT (BEAKER) (test pbwu=646) 4.48 M/ L 4.63-6.08 HEMOGLOBIN (BEAKER) (test ozdu=692) 11.7 GM/DL 13.7-17.5 HEMATOCRIT (BEAKER) (test fqor=992) 38.1 % 40.1-51.0 MEAN CORPUSCULAR VOLUME (BEAKER) (test wzkk=942) 85.0 fL 79.0-92.2 MEAN CORPUSCULAR HEMOGLOBIN (BEAKER) (test lems=745) 26.1 pg 25.7-32.2 MEAN CORPUSCULAR HEMOGLOBIN CONC (BEAKER) (test wuvt=589) 30.7 GM/DL 32.3-36.5 RED CELL DISTRIBUTION WIDTH (BEAKER) (test boke=513) 25.1 % 11.6-14.4 PLATELET COUNT (BEAKER) (test klpn=565) 284 K/CU MM 150-450 MEAN PLATELET VOLUME (BEAKER) (test jqho=408) 10.9 fL 9.4-12.4 NUCLEATED RED BLOOD CELLS (BEAKER) (test ezqu=599) 0 /100 WBC 0-0 NEUTROPHILS RELATIVE PERCENT (BEAKER) (test mihe=170) 68 % LYMPHOCYTES RELATIVE PERCENT (BEAKER) (test zotp=662) 17 % MONOCYTES RELATIVE PERCENT (BEAKER) (test xhok=225) 10 % EOSINOPHILS RELATIVE PERCENT (BEAKER) (test hsyi=106) 5 % BASOPHILS RELATIVE PERCENT (BEAKER) (test omox=726) 0 % NEUTROPHILS ABSOLUTE COUNT (BEAKER) (test waib=255) 6.76 K/ L 1.78-5.38 LYMPHOCYTES ABSOLUTE COUNT (BEAKER) (test brtw=952) 1.65 K/ L 1.32-3.57 MONOCYTES ABSOLUTE COUNT (BEAKER) (test eclj=053) 0.97 K/ L 0.30-0.82 EOSINOPHILS ABSOLUTE COUNT (BEAKER) (test yxof=106) 0.47 K/ L 0.04-0.54 BASOPHILS ABSOLUTE COUNT (BEAKER) (test qvim=422) 0.03 K/ L 0.01-0.08 IMMATURE GRANULOCYTES-RELATIVE PERCENT (BEAKER) (test xbsv=3264) 1 % 0-1 FINE NEEDLE ASPIRATE (FNA) [id number] 21:00:00* Test Item Value Reference Range Comments CYTOLOGY RESULT POINTER (BEAKER) (test exgl=0739) See Separate Report POCT-GLUCOSE [id number] 20:53:00* Test Item Value Reference Range Comments POC-GLUCOSE METER (BEAKER) (test plwx=6258) 116 mg/dL 70-110 TESTED AT [facility] [address] [facility] [address] [place], [id number] 20:36:00Intra Op ImagingReason for exam:->jaundiceFINAL REPORT ERCP 3 views 01/26/2018 8:36 PM CLINICAL HISTORY: Instrument localization COMPARISON: None available IMPRESSION: Please correlate imaging report findings with the procedure note prepared by Dr. Schaffer, as an intra-procedure imaging consultation was not requested. Reported fluoroscopy time: 114.0 seconds. Signed: Tee Mercer Verified Date/Time: 12/30 20:36:40 Reading Location: [facility] Radiology Reading Room Electr onically signed by: TEE MERCER M.D. on 01/26/2018 08:36 PM POCT-GLUCOSE [id number] 11:31:00* Test Item Value Reference Range Comments POC-GLUCOSE METER (BEAKER) (test enet=1526) 92 mg/dL 70-110 TESTED AT [facility] [address] [address] POCT-GLUCOSE [id number] 07:37:00* Test Item Value Reference Range Comments POC-GLUCOSE METER (BEAKER) (test adyb=9872) 95 mg/dL 70-110 TESTED AT [place] [id number] [facility] [address] CT, ABDOMEN - PELVIS, PANCREAS [id number] 00:15:00Reason for exam:-> obstructive jaundice , elevated LFT's , epigastric painFINAL REPORT EXAMINATION: CT SCAN OF THE ABDOMEN AND PELVIS CLINICAL HISTORY:Epigastric pain. Obstructive jaundice. Elevated liver function tests. COMPARISON EXAM: None TECHNIQUE: Axial noncontrast tomographic images were initially acquired through the abdomen and pelvis. Following the administration of IV contrast, the examination was repeated with imaging during the arterial, venous and delayed phases. Postprocessing was also performed and coronal and sagittal reformatted images were created and reviewed. The exam was performed according to our departmental dose optimization program which includes automated exposure control, adjustment of the mA and/or kV according to patient's size a nd/or use of iterative reconstructive technique. FINDINGS: No comparison studie s are available. There are 2 noncalcified nodules involving the right lower lobe . The nodules measure 8 mm and 4 mm respectively. The 8 mm nodule has subtle spi culated margins. A small 5 mm noncalcified nodule is also noted in the left ling chester. A small 4 mm noncalcified nodule is noted in the left lower lobe. The hear t size is normal. No evidence of a pericardial or pleural effusion. There is a s mall sliding-type hiatal hernia which contains predominantly mesenteric adipose tissue. The liver demonstrates relatively homogeneous contrast-enhancement. The spleen is normal in size measuring 10 cm. The common bile duct is dilated measur ing up to 11 mm in diameter. The intrahepatic bile ducts are also dilated. The g allbladder is also distended without evidence of pericholecystic edema. The main pancreatic duct is also dilated measuring up to 6 mm in the region of the pancr eatic neck. The main pancreatic duct is also dilated within the body and tail of the pancreas. A subtle hypodense approximately 1.4 cm nodular focus is noted in the head-uncinate process of the pancreas. The adrenal glands are normal in size and shape. No evidence of renal obstruction, nephrolithiasis or perinephric ed pk. The abdominal aorta is normal in caliber. Contrast also opacifies the suhas l venous system, mesenteric vessels, renal vessels, IVC, iliac and visualized fe moral vessels. No definite pathologic vascular encasement or pathologically enla rged lymph nodes. The stomach is relatively decompressed. The loops of small bow el are also normal in caliber. The appendix is not identified with certainty. No secondary signs of appendicitis. Segments of the colon demonstrate wall thicke vilma, most conspicuous involving the left colon. Although findings may reflect i ncomplete distention, a colitis would also be a consideration. There is a small adipose tissue containing umbilical hernia. No evidence of bowel involvement. Th e prostate gland is mildly enlarged. The bladder is decompressed. No significant intra-abdominal or pelvic free fluid. No evidence of an acute osseous abnormali ty or pathologic bone lesion. IMPRESSION: Vague 1.4 cm hypodense lesion involvi ng the pancreatic head-uncinate process. Although pancreatitis would be included in the differential diagnosis, underlying pancreatic mass including pancreatic adenocarcinoma should also be strongly considered. The upstream biliary and panc reatic ductal dilatation are concerning for an associated "double duct" sign. Pa ncreatic protocol abdominal MRI with gadolinium and MRCP would be beneficial in further characterization. Multiple noncalcified basilar lung nodules, the larges t measuring 8 mm. Postinflammatory versus neoplastic. Consider a dedicated chest CT. Colonic wall thickening. Incomplete distention versus a colitis. Underlying mucosal lesion cannot be excluded. Signed: Agata Angel MDReport Verified Date/ Time: 01/26/2018 00:15:45 Reading Location: [address] Aurelio deg[place] -GLUCOSE [id number] 21:20:00* Test Item Value Reference Range Comments POC-GLUCOSE METER (BEAKER) (test sfac=4117) 113 mg/dL 70-110 TESTED AT [address] [address] HEPATIC FUNCTION [id number] 18:28:00* Test Item Value Reference Range Comments TOTAL PROTEIN (BEAKER) (test trek=646) 6.9 gm/dL 6.0-8.3 ALBUMIN (BEAKER) (test oaoc=0377) 3.8 g/dL 3.5-5.0 BILIRUBIN TOTAL (BEAKER) (test bvfx=841) 31.6 mg/dL 0.2-1.2 BILIRUBIN DIRECT (BEAKER) (test hgsy=789) 23.2 mg/dL 0.1-0.5 ALKALINE PHOSPHATASE (BEAKER) (test qzld=496) 607 U/L 40-150 AST (SGOT) (BEAKER) (test dbdy=441) 224 U/L 5-34 ALT (SGPT) (BEAKER) (test ijxh=473) 454 U/L 6-55 Specimen markedly ictericBASIC METABOLIC [id number] 18:25:00* Test Item Value Reference Range Comments SODIUM (BEAKER) (test pptr=271) 135 meq/L 136-145 POTASSIUM (BEAKER) (test ktvs=414) 3.6 meq/L 3.5-5.1 CHLORIDE (BEAKER) (test ryhs=632) 99 meq/L 98-107 CO2 (BEAKER) (test cdim=717) 25 meq/L 22-29 BLOOD UREA NITROGEN (BEAKER) (test zcfu=518) 10 mg/dL 7-21 CREATININE (BEAKER) (test luzl=899) 0.86 mg/dL 0.57-1.25 GLUCOSE RANDOM (BEAKER) (test bvko=857) 113 mg/dL 70-105 CALCIUM (BEAKER) (test uejd=048) 9.9 mg/dL 8.4-10.2 EGFR (BEAKER) (test tpva=9690) 112 mL/min/1.73 sq m ESTIMATED GFR IS NOT ACCURATE CREATININE CLEARANCE IN PREDICTING GLOMERULAR FILTRATION RATE. ESTIMATED GFR IS NOT APPLICABLE FOR DIALYSIS PATIENTS. Specimen markedly [id number] 18:25:00* Test Item Value Reference Range Comments AMYLASE (BEAKER) (test vppq=147) 6 U/L 25-125 Specimen markedly [id number] 18:25:00* Test Item Value Reference Range Comments LIPASE (BEAKER) (test rxnc=355) 34 U/L 8-78 Specimen markedly ictericACETAMINOPHEN [id number] 18:15:00* Test Item Value Reference Range Comments ACETAMINOPHEN LEVEL (BEAKER) (test wdkd=849) < ug/mL 10.0-30.0 Specimen moderately hemolyzed Therapeutic Range: 10.0-30.0 g/mLToxic Levels: >200.0 g/mLPT/APTT 2018-01-25 18:13:00* Test Item Value Reference Range Comments PROTIME (BEAKER) (test hnhs=187) 14.9 seconds 11.7-14.7 INR (BEAKER) (test jttc=010) 1.2 <=5.9 PARTIAL THROMBOPLASTIN TIME (BEAKER) (test rnxh=209) 29.6 seconds 22.5-36.0 RECOMMENDED COUMADIN/WARFARIN INR THERAPY RANGESSTANDARD DOSE: 2.0 - 3.0 Inclu francisco: PROPHYLAXIS for venous thrombosis, systemic embolization; TREATMENT for gloria ous thrombosis and/or pulmonary embolus.HIGH RISK: Target INR is 2.5-3.5 for pat ients with mechanical heart valves.POCT-GLUCOSE [id number] 18:07:00* Test Item Value Reference Range Comments POC-GLUCOSE METER (BEAKER) (test znot=1544) 118 mg/dL 70-110 TESTED AT [address] [address] CBC W/PLT COUNT & AUTO [id number] 18:07:00* Test Item Value Reference Range Comments WHITE BLOOD CELL COUNT (BEAKER) (test rdwc=324) 8.2 K/ L 3.5-10.5 RED BLOOD CELL COUNT (BEAKER) (test jzpf=606) 4.56 M/ L 4.63-6.08 HEMOGLOBIN (BEAKER) (test ifds=615) 11.9 GM/DL 13.7-17.5 HEMATOCRIT (BEAKER) (test uotb=967) 37.9 % 40.1-51.0 MEAN CORPUSCULAR VOLUME (BEAKER) (test isbp=202) 83.1 fL 79.0-92.2 MEAN CORPUSCULAR HEMOGLOBIN (BEAKER) (test zqcw=194) 26.1 pg 25.7-32.2 MEAN CORPUSCULAR HEMOGLOBIN CONC (BEAKER) (test fnfa=554) 31.4 GM/DL 32.3-36.5 RED CELL DISTRIBUTION WIDTH (BEAKER) (test uqsn=104) 24.8 % 11.6-14.4 PLATELET COUNT (BEAKER) (test slwi=579) 291 K/CU MM 150-450 MEAN PLATELET VOLUME (BEAKER) (test guwn=014) 10.3 fL 9.4-12.4 NUCLEATED RED BLOOD CELLS (BEAKER) (test vgvm=169) 0 /100 WBC 0-0 NEUTROPHILS RELATIVE PERCENT (BEAKER) (test bkdf=208) 61 % LYMPHOCYTES RELATIVE PERCENT (BEAKER) (test pnne=647) 20 % MONOCYTES RELATIVE PERCENT (BEAKER) (test yitj=411) 11 % EOSINOPHILS RELATIVE PERCENT (BEAKER) (test qimw=221) 8 % BASOPHILS RELATIVE PERCENT (BEAKER) (test frtf=784) 0 % NEUTROPHILS ABSOLUTE COUNT (BEAKER) (test zmha=395) 4.95 K/ L 1.78-5.38 LYMPHOCYTES ABSOLUTE COUNT (BEAKER) (test glbm=135) 1.65 K/ L 1.32-3.57 MONOCYTES ABSOLUTE COUNT (BEAKER) (test hyax=753) 0.86 K/ L 0.30-0.82 EOSINOPHILS ABSOLUTE COUNT (BEAKER) (test frws=575) 0.61 K/ L 0.04-0.54 BASOPHILS ABSOLUTE COUNT (BEAKER) (test mxxe=420) 0.03 K/ L 0.01-0.08 IMMATURE GRANULOCYTES-RELATIVE PERCENT (BEAKER) (test cjna=8293) 1 % 0-1
--- OUTSIDE RECORDS SUMMARY | 2018-10-09 23:50 | XMS REPORT | Clinical Summary ---
Author Author NICO [facility] Address Unknown Phone Unavailable Care Team Providers Care Stab Setter And Driller Name Role Phone QuinnJim mayer Zeeshan PCP Allergies No Known Allergies Medications End Date Status Medication Sig Dispensed Refills Start Date Active metFORMIN (GLUCOPHAGE) Take 1,000 mg 0 500 MG tablet by mouth 2 (two) times daily with breakfast and dinner . Active ibuprofen (ADVIL,MOTRIN) Take 200 mg 0 200 MG tablet by mouth every 6 (six) hours as needed for Pain. Active lipase/protease/amylase Take by mouth 0 (ZENPEP ORAL) 3 (three) times daily with meals. 01/31/2018 Discontinued lisinopril Take 5 mg by 0 (PRINIVIL,ZESTRIL) 5 MG mouth daily. tablet 09/13/2018 Discontinued aspirin 81 MG EC tablet Take 81 mg by 0 mouth daily. 01/31/2018 Discontinued simvastatin (ZOCOR) 20 MG Take 20 mg by 0 tablet mouth nightly. 03/02/2018 levoFLOXacin (LEVAQUIN) Take 1 tablet 6 tablet 0 500 MG tablet (500 mg 8 total) by mouth daily for 6 days. Active Problems Problem Noted Date Pancreatic cancer 02/21/2018 Generalized abdominal pain 02/21/2018 Moderate malnutrition 01/27/2018 Mass of pancreas 01/26/2018 Dilation of biliary tract 01/26/2018 Obstructive jaundice 01/25/2018 Elevated LFTs 01/25/2018 Coronary artery disease involving squaxin coronary artery of squaxin heart 01/25/2018 without angina pectoris Type 2 diabetes mellitus, without long-term current use of insulin 01/25/2018 Hyperlipidemia 01/25/2018 Weight loss, unintentional 01/25/2018 Epigastric pain 01/25/2018 Resolved Problems Problem Noted Date Resolved Date Other specified diseases of biliary tract 01/25/2018 01/25/2018 Essential hypertension 01/25/2018 01/28/2018 Encounters Care Team Description Date Type Specialty Drew Lay MD Naik, Savage James MD Malignant neoplasm of head of pancreas (HCC) 09/14/2018 Hospital Encounter Drew Lay MD Malignant neoplasm of head of pancreas (HCC) (Primary Dx) 09/12/2018 Outside Orders Carlos Enrique Watts, DEREK 02/21/2018 Anesthesia Gastroenterology Event Brad Stephenson MD PROCEDURE W/ C-ARM 02/21/2018 Surgery Gastroenterology Alyssa Houston MD Dhir, Mili Curry MD Generalized abdominal pain (Primary Dx); Pancreatic mass; Obstructive jaundice; Elevated LFTs; History of diabetes mellitus 02/21/2018 Emergency Cardiology - 02/23/2018 02/21/2018 Travel 01/27/2018 Travel Pete Qureshi MD 01/26/2018 Anesthesia Gastroenterology Event Ritika Schaffer MD ERCP,PAPILLOTOMY 01/26/2018 Surgery Gastroenterology Geovanna, MD Giovana Price Syed M., MD Coronary artery disease involving squaxin coronary artery of squaxin heart without angina pectoris 01/25/2018 [facility] Internal Medicine - Encounter 01/31/2018 after 10/08/2017 Family History Medical History Relation Name Comments Hypertension Father Hypertension Mother Diabetes type II Sister Relation Name Status Comments Father Mother Sister Social History Date Tobacco Use Types Packs/Day Years Used Quit: 01/25/2018 Former Smoker Cigarettes, 25 Cigars Smokeless Tobacco: Never Used Comments: cigars Alcohol Use Drinks/Week oz/Week Comments Yes 9oz / month, socially Sex Assigned at Date Recorded Not on file Industry Job Start Date Occupation Not on file Not on file Not on file Travel End Travel History Travel Start No recent travel history available. Last Filed Vital Signs Time Taken Vital Sign Reading 09/14/2018 1:35 PM CDT Blood Pressure 138/95 09/14/2018 1:35 PM CDT Pulse 65 09/14/2018 1:06 PM CDT Temperature 37 C (98.6 F) 09/14/2018 1:35 PM CDT Respiratory Rate 21 09/14/2018 1:35 PM CDT Oxygen Saturation 100% - Inhaled Oxygen - Concentration 09/14/2018 11:01 AM CDT Weight 61.2 kg (135 lb) 09/14/2018 11:01 AM CDT Height 165.1 cm (5' 5") 09/14/2018 11:01 AM CDT Body Mass Index 22.47 Plan of Treatment Not on file Implants Device Identifier Shelf Expiration Date Model / Serial / Lot Implanted Type Area Manufactur er 08/28/2019 [id number] / / [id number] Powerport Catheter Implanted: Qty: 1 on 09/14/2018 Ports/Cent ral Line 12/30/2019 [id number] / / Stent Bili Rx [id number] Stents-Per N/A: Common [employer] [id number] - [id number] ipheral Bile Duct SCI:PERIPH Implanted: Qty: 1 on 02/21/2018 ERAL INTERV Device Identifier Shelf Expiration Date Model / Serial / Lot Explanted Type Area Manufactur er 10/17/2019 [id number] / / [id number] Stent Bili Duodenal [id number] Stents-Per N/A: Common [place] - [id number] ipheral Bile Duct SCI:ENDO Implanted: Qty: 1 on 01/26/2018 by Ritika Schaffer MD Explanted: Qty: 1 on 02/21/2018 Procedures Comments Procedure Name Priority Date/Time Associated Diagnosis CARDIAC CATH REPORT - 09/15/2018 SCAN 1:51 PM CDT IR PORT-A-CATH PLACEMENT Routine 09/14/2018 Malignant neoplasm of 1:00 PM CDT head of pancreas (HCC) POCT-GLUCOSE METER Routine 09/14/2018 11:09 AM CDT (MANUAL DIFFERENTIAL) Routine 09/14/2018 11:06 AM CDT CBC W/PLT COUNT & AUTO STAT 09/14/2018 DIFFERENTIAL 11:06 AM CDT PT/APTT STAT 09/14/2018 11:06 AM CDT CBC W/PLT COUNT & AUTO STAT 09/14/2018 DIFFERENTIAL 11:06 AM CDT RHYTHM STRIP - SCAN 06/01/2018 1:12 PM CDT RHYTHM STRIP - SCAN 03/10/2018 1:10 PM VEHICLE ASSEMBLER POCT-GLUCOSE METER Routine 02/23/2018 11:28 AM VEHICLE ASSEMBLER HEPATIC FUNCTION PANEL Routine 02/23/2018 9:27 AM VEHICLE ASSEMBLER POCT-GLUCOSE METER Routine 02/23/2018 8:06 AM VEHICLE ASSEMBLER POCT-GLUCOSE METER Routine 02/23/2018 12:17 AM VEHICLE ASSEMBLER POCT-GLUCOSE METER Routine 02/22/2018 8:00 AM VEHICLE ASSEMBLER HEPATIC FUNCTION PANEL Routine 02/22/2018 7:12 AM VEHICLE ASSEMBLER POCT-GLUCOSE METER Routine 02/21/2018 5:53 PM VEHICLE ASSEMBLER POCT-GLUCOSE METER Routine 02/21/2018 4:26 PM VEHICLE ASSEMBLER REPORT OF PROCEDURE - 02/21/2018 ENDOSCOPY URL 4:17 PM VEHICLE ASSEMBLER FL ERCP Routine 02/21/2018 4:12 PM VEHICLE ASSEMBLER ERCP,STENT REMOVAL 02/21/2018 Obstructive jaundice 2:20 PM VEHICLE ASSEMBLER ERCP,BILIARY STENT 02/21/2018 Obstructive jaundice 2:20 PM VEHICLE ASSEMBLER PROCEDURE W/ C-ARM 02/21/2018 Obstructive jaundice 2:20 PM VEHICLE ASSEMBLER POCT-GLUCOSE METER Routine 02/21/2018 10:08 AM VEHICLE ASSEMBLER URINALYSIS W/ MICROSCOPIC STAT 02/21/2018 6:[address] ABDOMEN/PELVIS WITH IV STAT 02/21/2018 CONTRAST 6:12 AM VEHICLE ASSEMBLER CBC W/PLT COUNT & AUTO STAT 02/21/2018 DIFFERENTIAL 4:36 AM VEHICLE ASSEMBLER HEPATIC FUNCTION PANEL STAT 02/21/2018 4:36 AM VEHICLE ASSEMBLER LIPASE STAT 02/21/2018 4:36 AM VEHICLE ASSEMBLER CBC W/PLT COUNT & AUTO STAT 02/21/2018 DIFFERENTIAL 4:36 AM VEHICLE ASSEMBLER BASIC METABOLIC PANEL (7) STAT 02/21/2018 4:36 AM VEHICLE ASSEMBLER TISSUE EXAM AP Routine 01/31/2018 7:49 AM VEHICLE ASSEMBLER POCT-GLUCOSE METER Routine 01/31/2018 7:39 AM VEHICLE ASSEMBLER POCT-GLUCOSE METER Routine 01/30/2018 9:31 PM VEHICLE ASSEMBLER POCT-GLUCOSE METER Routine 01/30/2018 5:19 PM VEHICLE ASSEMBLER XR CHEST PA OR AP 1 VIEW STAT 01/30/2018 IN DEPT. 4:[address] NEEDLE BIOPSY LUNG Routine 01/30/2018 4:00 PM VEHICLE ASSEMBLER POCT-GLUCOSE METER Routine 01/30/2018 11:42 AM VEHICLE ASSEMBLER PT/APTT Routine 01/30/2018 9:46 AM VEHICLE ASSEMBLER POCT-GLUCOSE METER Routine 01/30/2018 7:44 AM VEHICLE ASSEMBLER CBC W/PLT COUNT & AUTO Routine 01/30/2018 DIFFERENTIAL 5:32 AM VEHICLE ASSEMBLER MAGNESIUM Routine 01/30/2018 5:32 AM VEHICLE ASSEMBLER COMPREHENSIVE METABOLIC Routine 01/30/2018 PANEL 5:32 AM VEHICLE ASSEMBLER CBC W/PLT COUNT & AUTO Routine 01/30/2018 DIFFERENTIAL 5:32 AM VEHICLE ASSEMBLER POCT-GLUCOSE METER Routine 01/29/2018 9:01 PM VEHICLE ASSEMBLER POCT-GLUCOSE METER Routine 01/29/2018 5:13 PM VEHICLE ASSEMBLER POCT-GLUCOSE METER Routine 01/29/2018 12:23 PM VEHICLE ASSEMBLER POCT-GLUCOSE METER Routine 01/29/2018 7:52 AM VEHICLE ASSEMBLER CBC W/PLT COUNT & AUTO Routine 01/29/2018 DIFFERENTIAL 6:31 AM VEHICLE ASSEMBLER CARBOHYDRATE ANTIGEN 19-9 Routine 01/29/2018 (CA 19-9) 6:31 AM VEHICLE ASSEMBLER MAGNESIUM Routine 01/29/2018 6:31 AM VEHICLE ASSEMBLER COMPREHENSIVE METABOLIC Routine 01/29/2018 PANEL 6:31 AM VEHICLE ASSEMBLER CBC W/PLT COUNT & AUTO Routine 01/29/2018 DIFFERENTIAL 6:31 AM VEHICLE ASSEMBLER POCT-GLUCOSE METER Routine 01/28/2018 11:52 PM VEHICLE ASSEMBLER POCT-GLUCOSE METER Routine 01/28/2018 9:19 PM VEHICLE ASSEMBLER POCT-GLUCOSE METER Routine 01/28/2018 6:00 PM VEHICLE ASSEMBLER POCT-GLUCOSE METER Routine 01/28/2018 12:17 PM VEHICLE ASSEMBLER POCT-GLUCOSE METER Routine 01/28/2018 7:41 AM VEHICLE ASSEMBLER CBC W/PLT COUNT & AUTO Routine 01/28/2018 DIFFERENTIAL 6:42 AM VEHICLE ASSEMBLER MAGNESIUM Routine 01/28/2018 6:42 AM VEHICLE ASSEMBLER COMPREHENSIVE METABOLIC Routine 01/28/2018 PANEL 6:42 AM VEHICLE ASSEMBLER CBC W/PLT COUNT & AUTO Routine 01/28/2018 DIFFERENTIAL 6:42 AM VEHICLE ASSEMBLER POCT-GLUCOSE METER Routine 01/27/2018 9:03 PM VEHICLE ASSEMBLER POCT-GLUCOSE METER Routine 01/27/2018 5:20 PM VEHICLE ASSEMBLER POCT-GLUCOSE METER Routine 01/27/2018 12:[address] CHEST WITH IV CONTRAST Routine 01/27/2018 10:08 AM VEHICLE ASSEMBLER POCT-GLUCOSE METER Routine 01/27/2018 8:03 AM VEHICLE ASSEMBLER CBC W/PLT COUNT & AUTO Routine 01/27/2018 DIFFERENTIAL 5:29 AM VEHICLE ASSEMBLER COMPREHENSIVE METABOLIC Routine 01/27/2018 PANEL 5:29 AM VEHICLE ASSEMBLER CBC W/PLT COUNT & AUTO Routine 01/27/2018 DIFFERENTIAL 5:29 AM VEHICLE ASSEMBLER POCT-GLUCOSE METER Routine 01/26/2018 8:42 PM VEHICLE ASSEMBLER REPORT OF PROCEDURE - 01/26/2018 ENDOSCOPY URL 6:30 PM VEHICLE ASSEMBLER FL ERCP Routine 01/26/2018 6:30 PM VEHICLE ASSEMBLER FINE NEEDLE ASPIRATE Routine 01/26/2018 (FNA) REQUEST 5:50 PM VEHICLE ASSEMBLER FINE NEEDLE ASPIRATION BY AP Routine 01/26/2018 CLINICIAN 5:50 PM VEHICLE ASSEMBLER ERCP,BILIARY STENT 01/26/2018 Jaundice 5:00 PM VEHICLE ASSEMBLER PROCEDURE W/ C-ARM 01/26/2018 Jaundice 5:00 PM VEHICLE ASSEMBLER UPPER ENDOSCOPY,FNA 01/26/2018 Jaundice W/ULTRASOUND 5:00 PM VEHICLE ASSEMBLER ERCP,PAPILLOTOMY 01/26/2018 Jaundice 5:00 PM VEHICLE ASSEMBLER POCT-GLUCOSE METER Routine 01/26/2018 11:10 AM VEHICLE ASSEMBLER POCT-GLUCOSE METER Routine 01/26/2018 7:[address] ABD/PELVIS - PANCREAS STAT 01/25/2018 EVALUATION 11:41 PM VEHICLE ASSEMBLER POCT-GLUCOSE METER Routine 01/25/2018 9:14 PM VEHICLE ASSEMBLER ECG 12-LEAD Routine 01/25/2018 6:08 PM VEHICLE ASSEMBLER POCT-GLUCOSE METER Routine 01/25/2018 6:05 PM VEHICLE ASSEMBLER CBC W/PLT COUNT & AUTO STAT 01/25/2018 DIFFERENTIAL 5:47 PM VEHICLE ASSEMBLER ACETAMINOPHEN LEVEL PERNELL 01/25/2018 5:47 PM VEHICLE ASSEMBLER AMYLASE STAT 01/25/2018 5:47 PM VEHICLE ASSEMBLER LIPASE STAT 01/25/2018 5:47 PM VEHICLE ASSEMBLER CBC W/PLT COUNT & AUTO STAT 01/25/2018 DIFFERENTIAL 5:47 PM VEHICLE ASSEMBLER PT/APTT STAT 01/25/2018 5:47 PM VEHICLE ASSEMBLER HEPATIC FUNCTION PANEL STAT 01/25/2018 5:47 PM VEHICLE ASSEMBLER BASIC METABOLIC PANEL (7) STAT 01/25/2018 5:47 PM VEHICLE ASSEMBLER after 10/08/2017 Results * CARDIAC CATH REPORT - SCAN (09/15/2018 1:51 PM CDT) Narrative Performed At * IR Port-a-Cath Placement (09/14/2018 1:00 PM CDT) Specimen Narrative Performed At FINAL REPORT [employer] Procedure: Chest port placement. History: Pancreatic cancer Operators: Bina Conscious Sedation:Versed 3 mg, fentanyl 150 mcg, (Administered after informed consent was obtained) Vital signs were monitored throughout the procedure by a nurse, and remained stable. Physician intra-service time was 30 minutes. Total fluoroscopy time: 11 seconds Estimated dose reported as ( Ka, r):0.1 mGy Technique: Informed written consent was obtained. [...] and scrub technologist. Under direct real-time ultrasound guidancethe right internal jugular vein was accessed with a micropuncture needle. A 5 Djiboutian sheath and dilator was placed. A 3 J-wire was then advanced and the access site was dilated. A 7 [place]iboutian peel-away introducer sheath was then placed. The distal end of the 5 Djiboutian port catheter was then advanced through the peel-away and placed with tip under fluoroscopic control at the atriocaval junction. The proximal end of the catheter was then back tunneled on the anterior chest. A subcutaneous pocket was then made. The catheter was then attached to asingle-lumen port which was placed into the pocket and anchored with 2 Monocryl sutures. The port flushed and aspirated easily following placement and was packed with 5cc of Heparin at 100U/cc (total dosage of 500U). The overlying skin was closed with interrupted subcuticular sutures. Steri-strips anddressing was applied. There are no immediate complications. [...] power CT injections was placed. Signed: Savage Hussein MD Report Verified Date/Time:09/14/2018 13:37:17 Reading Location: [facility] Radiology Reading Room Procedure Note Interface, External Ris In - 09/14/2018 1:39 PM CDT FINAL REPORT Procedure: Chest port placement. History: [...] accessed with a micropuncture needle. A 5 Djiboutian sheath and dilator was placed. A 3 J-wire was then advanced and the access site was dilated. A 7 [place]iboutian peel-away introducer sheath was then placed. The distal end of the 5 Djiboutian port catheter was then advanced through the [...] power CT injections was placed. Signed: Savage Hussein MD Report Verified Date/Time: 09/14/2018 13:37:17 Reading Location: [facility] Radiology Reading Room Performing Organization Address City/State/Zipcode Phone Number [facility] * POC-Glucose meter (09/14/2018 11:09 AM CDT) Only the most recent of 31 results within the time period is included. POC-Glucose Meter 128 (H)Comment: TESTED AT [facility] 70 - 110 mg/dL [facility] [address] [place] [address] Specimen Blood Performing Organization Address City/State/Zipcode Phone Number [facility] [address] [place] [address] [facility] * Manual Differential (09/14/2018 11:06 AM CDT) % Neutros (manual) 61 % [facility] % Lymphs (manual) 12 % [facility] % Monos (manual) 10 % [facility] % Eos (manual) 13 % [facility] % Atypical Lymphs 4 (H) 0 - 0 % [facility] # Neutros (manual) 4.88 1.80 - 8.00 K/L [facility] # Lymphs (manual) 0.96 (L) 1.48 - 4.50 K/L [facility] # Monos (manual) 0.80 0.00 - 1.30 K/L [facility] # Eos (manual) 1.04 (H) 0.00 - 0.50 K/L [facility] # Atypical Lymphs 0.32 (H) 0.00 - 0.00 K/L [facility] Total Counted 100 [facility] WBC Morphology Normal [facility] Platelet Morphology Normal [facility] RBC Morphology Normal [facility] Specimen Blood Performing Organization Address City/[facility]/Zipcode Phone Number [place] [phone] [place], [place] [phone] * PT/aPTT (09/14/2018 11:06 AM CDT) Only the most recent of 3 results within the time period is included. Protime 11.1 9.3 - 12.0 sec [facility] INR 1.0 <=5.9 [facility] PTT 29.3 23.0 - 35.0 sec [facility] Specimen Blood Narrative Performed At RECOMMENDED COUMADIN/WARFARIN INR THERAPY RANGES [facility] STAND[facility] DOSE: 2.0 - 3.0 Includes: PROPHYLAXIS for venous thrombosis, LABORATORY systemic embolization; TREATMENT for venous thrombosis and/or pulmonary embolus. HIGH RISK: Target INR is 2.5-3.5 for patients with mechanical heart valves. Final Information (Auto Output) Final Information (Auto Output) Final Information (Auto Output) Performing Organization Address City/State/[facility] Cent[facility]ode Phone Number [address] [phone] * CBC with platelet count + automated diff (09/14/2018 11:06 AM CDT) Only the most recent of 7 results within the time period is included. WBC 8.0 4.0 - 10.0 K/L [facility] RBC 4.34 4.20 - 5.80 M/L [facility] Hemoglobin 12.0 (L) 13.0 - 16.8 GM/DL [facility] Hematocrit 37.9 36.0 - 50.0 % [facility] MCV 87.3 82.0 - 99.0 fL [place] MCH 27.6 27.0 - 33.0 pg [facility] MCHC 31.7 (L) 32.0 - 36.0 GM/DL [facility] RDW 13.4 12.0 - 15.0 % [facility] Platelets 314 150 - 430 K/CU MM [facility] MPV 9.8 6.0 - 11.5 fL [facility] nRBC 0 0 - 0 /100 WBC [facility] Specimen Blood Performing Organization Address City/State/Zipcode Phone Number [facility] [address] [place] [address] * RHYTHM STRIP - SCAN (06/01/2018 1:12 PM CDT) Only the most recent of 2 results within the time period is included. Narrative Performed At * Hepatic function panel (02/23/2018 9:27 AM VEHICLE ASSEMBLER) Only the most recent of 4 results within the time period is included. Protein, Total 6.8 6.0 - 8.3 gm/dL [facility] Albumin 3.4 (L) 3.5 - 5.0 g/dL [facility] Total Bilirubin 18.4 (H) 0.2 - 1.2 mg/dL [facility] Bilirubin, Direct 13.0 (H) 0.1 - 0.5 mg/dL [facility] Alkaline Phosphatase 1,058 (H) 40 - 150 U/L [facility] AST 699 (H) 5 - 34 U/L [facility] ALT 628 (H) 6 - 55 U/L [facility] Specimen Blood Narrative Performed At Specimen markedly icteric [facility] Performing Organization Address City/State/Zipcode Phone Number [facility] [address] [place] [address] [facility] * REPORT OF PROCEDURE - ENDOSCOPY URL (02/21/2018 4:17 PM VEHICLE ASSEMBLER) Narrative Performed At * FL ERCP (02/21/2018 4:12 PM VEHICLE ASSEMBLER) Only the most recent of 2 results within the time period is included. Specimen Narrative Performed At FINAL REPORT [facility] ERCP 3 views 02/21/2018 4:29 PM CLINICAL HISTORY: Instrument localization COMPARISON: None available IMPRESSION: Please correlate imaging report findings with the procedure note prepared by Dr. Stephenson, as an intra-procedure imaging consultation was not requested. Reported fluoroscopy time: 31.3 seconds. Signed: Tee Mercer MD Report Verified Date/Time:02/21/2018 16:29:24 Reading Location: [address] Neuro Reading Room Procedure Note Interface, External Ris In - 02/21/2018 4:31 PM VEHICLE ASSEMBLER FINAL REPORT ERCP 3 views 02/21/2018 4:29 PM CLINICAL HISTORY: Instrument localization COMPARISON: None available IMPRESSION: Please correlate imaging report findings with the procedure note prepared by Dr. Stephenson, as an intra-procedure imaging consultation was not requested. Reported fluoroscopy time: 31.3 seconds. Signed: Tee Mercer MD Report Verified Date/Time: 02/21/2018 16:29:24 Reading Location: [address] Neuro Reading Room Performing Organization Address City/State/Zipcode Phone Number [facility] * Urinalysis w/ Microscopic (02/21/2018 6:51 AM VEHICLE ASSEMBLER) Color, UA Dark Yellow [facility] Clarity, UA Clear [facility] Specific [place], UA 1.019 1.001 - 1.035 [facility] pH, UA 7.0 5.0 - 8.0 [facility] Protein, UA 20 mg/dL (A) Negative [facility] Glucose, UA Negative Negative [facility] Ketones, UA 80 mg/dL (A) Negative [facility] Bilirubin, UA Positive (A) Negative [facility] Blood, UA Negative Negative [facility] Nitrite, UA Negative Negative [facility] Leukocytes, UA Negative Negative [facility] Urobilinogen, UA 0.2 0.2 - 1.0 mg/dL [facility] RBC, UA <1 /HPF [facility] WBC, UA 1 /HPF [facility] Mucus Occasional [facility] Ca Oxalate [place], UA Rare [facility] Amorphous Crystals Rare [facility] Specimen Source Urine, Voided [facility] Specimen Urine Performing Organization Address City/State/Zipcode Phone Number [facility] [address] [place] [address] [facility] * CT abdomen pelvis with IV contrast (02/21/2018 6:12 AM VEHICLE ASSEMBLER) Specimen Narrative Performed At FINAL REPORT [facility] CT scan of the abdomen and pelvis. [...] are seen. Bone windows demonstrate degenerative changes. IMPRESSION: 1. Nodules in the lung bases. Please refer to recent chest CT. This is suspicious for metastatic disease. 2. Stent in the CBD with mild to moderate biliary dilatation, more pronounced than on previous. 3. Mass in the pancreatic head, as on previous. 4. No evidence of diverticulitis or small bowel obstruction. Signed: Forest Araiza MD Report Verified Date/Time:02/21/2018 07:23:40 Reading Location: [facility] [id number] Ortho Consult Reading Room Procedure Note Interface, External Ris In - 02/21/2018 7:25 AM VEHICLE ASSEMBLER FINAL REPORT CT scan of the abdomen and [...] are seen. Bone windows demonstrate degenerative changes. IMPRESSION: 1. Nodules in the lung bases. Please refer to recent chest CT. This is suspicious for metastatic disease. 2. Stent in the CBD with mild to moderate biliary dilatation, more pronounced than on previous. 3. Mass in the pancreatic head, as on previous. 4. No evidence of diverticulitis or small bowel obstruction. Signed: Forest Araiza MD Report Verified Date/Time: 02/21/2018 07:23:40 Reading Location: [facility] [id number] Ortho Consult Reading Room Performing Organization Address City/State/Zipcode Phone Number [facility] * Lipase (02/21/2018 4:36 AM VEHICLE ASSEMBLER) Only the most recent of 2 results within the time period is included. Lipase 5 (L) 8 - 78 U/L [facility] Specimen Blood Narrative Performed At Specimen markedly icteric [facility] Performing Organization Address City/State/Zipcode Phone Number [facility] [address] [place] [address] MEDICAL [facility]ENTER * Basic Metabolic Panel (02/21/2018 4:36 AM VEHICLE ASSEMBLER) Only the most recent of 2 results within the time period is included. Sodium 138 136 - 145 meq/L [facility] Potassium 3.5 3.5 - 5.1 meq/L [facility] Chloride 98 98 - 107 meq/L [facility] CO2 29 22 - 29 meq/L [facility] BUN 7 7 - 21 mg/dL [facility] Creatinine 0.85 0.57 - 1.25 mg/dL [facility] Glucose 159 (H) 70 - 105 mg/dL [facility] Calcium 9.3 8.4 - 10.2 mg/dL [facility] EGFR 113Comment: ESTIMATED GFR IS mL/min/1.73 sq m [facility] NOT ACCURATE CREATININE [facility] CLEARANCE IN PREDICTING GLOMERULAR FILTRATION RATE. ESTIMATED GFR IS NOT APPLICABLE FOR DIALYSIS PATIENTS. Specimen Blood Narrative Performed At Specimen markedly icteric [facility] Performing Organization Address City/State/Zipcode Phone Number [facility] [address] [place] [address] [facility] * Tissue Exam (01/31/2018 7:49 AM VEHICLE ASSEMBLER) Case Report Surgical Pathology [facility] Report [facility] Case: [id number] Authorizing Provider:Herrera Akhtar MDCollected: 01/31/201849 Ordering Location: [address] Received: 01/31/2018 0749 Service Pathologist: Toby Conte MD Specimen:Lung, Right DIAGNOSIS LUNG, RIGHT, BIOPSY OF MASS [facility] - ADENOCARCINOMA, FAVOR [facility] METASTASES FROM PANCREATIC PRIMARY (SEE COMMENT) Signing Pathologist Direct Phone Line: [phone] COMMENT With the history of pancreatic [facility] adenocarcinoma, the clinical [facility] presentation of multiple, bilateral nodules, the histologic features and immunohistochemical stains are compatible with a metastatic pancreatic adenocarcinoma. CPT Code(s) 19789, 47011, 04508 X6 [facility] CLINICAL HISTORY Multiple lung nodules, [facility] [place] pancreatic mass [facility] SPECIMEN SOURCE CT biopsy lung [facility] GROSS DESCRIPTION The specimen is received in a [facility] formalin-filled container and [facility] labeled with the patient's information and labeled "CT biopsy lung biopsy" consists of multiple fragments of off white tissue ranging from less than 0.1 to 0.3 cm, submitted entirely A1. CG/pl SPECIAL STUDIES The interpretation of this [facility] case included the use of [facility] immunohistochemistry or special stains. Immunohistochemistry technical testing was performed at [facility], Pathology Laboratory where it was developed [...] Laboratory Improvement Amendments of 1988 (CLIA-88) as qualified to perform high complexity clinical laboratory testing. CK7-positive ZR31-tfafxxwf CDX-2- patchy positive TTF1- negative Napsin A-negative HD03-pkwkarza BN26-hwkevcau controls are adequate Specimen Tissue Performing Organization Address City/[facility]/Zipcode Phone Number [place] [phone] [place] [address] [facility] * XR chest PA or AP 1 view in dept (01/30/2018 4:26 PM VEHICLE ASSEMBLER) Specimen Narrative Performed At FINAL REPORT [employer] Technique: Single view of the chest FINDINGS: No definite pneumothorax status post recent biopsy of a right lung nodule. Tiny scattered lung nodules are noted which are better seen on the recent CT. Cardiac silhouette is enlarged. Aortic calcifications are seen. Signed: Savage Hussein MD Report Verified Date/Time:01/30/2018 16:58:51 Reading Location: [facility] Radiology Reading Room Procedure Note Interface, External Ris In - 01/30/2018 5:01 PM VEHICLE ASSEMBLER FINAL REPORT Technique: Single view of the chest FINDINGS: No definite pneumothorax status post recent biopsy of a right lung nodule. Tiny scattered lung nodules are noted which are better seen on the recent CT. Cardiac silhouette is enlarged. Aortic calcifications are seen. Signed: Savage Hussein MD Report Verified Date/Time: 01/30/2018 16:58:51 Reading Location: [facility] Radiology Reading Room Performing Organization Address City/[facility]ode Phone Number [facility] * CT biopsy lung (01/30/2018 4:00 PM VEHICLE ASSEMBLER) Specimen Narrative Performed At FINAL REPORT [employer] PROCEDURE: CT-guided core biopsy of right upper [...] later. Patient was stable throughout the procedure. IMPRESSION: CT-guided core biopsy right upper lobe pulmonary nodule. Tiny post procedure right pneumothorax. Signed: Royal Earl MD Report Verified Date/Time:01/30/2018 18:36:01 Reading Location: [facility] B1 C013Y CT Body Reading Room Procedure Note Interface, External Ris In - 01/30/2018 6:38 PM VEHICLE ASSEMBLER FINAL REPORT PROCEDURE: CT-guided core biopsy of right [...] later. Patient was stable throughout the procedure. IMPRESSION: CT-guided core biopsy right upper lobe pulmonary nodule. Tiny post procedure right pneumothorax. Signed: Royal Earl MD Report Verified Date/Time: 01/30/2018 18:36:01 Reading Location: [address] Body Reading Room Performing Organization Address City/State/Zipcode Phone Number RIS * Magnesium (01/30/2018 5:32 AM VEHICLE ASSEMBLER) Only the most recent of 3 results within the time period is included. Magnesium 1.7 1.6 - 2.6 mg/dL [facility] Specimen Blood Performing Organization Address City/[facility]/Zipcode Phone Number [facility] [address] [place] [address] [facility] * Comprehensive metabolic panel (01/30/2018 5:32 AM VEHICLE ASSEMBLER) Only the most recent of 4 results within the time period is included. Protein, Total 5.8 (L) 6.0 - 8.3 gm/dL [facility] Albumin 3.1 (L) 3.5 - 5.0 g/dL [facility] Alkaline Phosphatase 385 (H) 40 - 150 U/L [facility] Total Bilirubin 10.0 (H) 0.2 - 1.2 mg/dL [facility] Sodium 138 136 - 145 meq/L [facility] Potassium 3.6 3.5 - 5.1 meq/L [facility] Chloride 107 98 - 107 meq/L [facility] CO2 24 22 - 29 meq/L [facility] BUN 3 (L) 7 - 21 mg/dL [facility] Creatinine 0.74 0.57 - 1.25 mg/dL [facility] Glucose 177 (H) 70 - 105 mg/dL [facility] Calcium 8.6 8.4 - 10.2 mg/dL [facility] AST 103 (H) 5 - 34 U/L [facility] ALT 214 (H) 6 - 55 U/L [facility] EGFR 133Comment: ESTIMATED GFR IS mL/min/1.73 sq m [facility] NOT ACCURATE CREATININE [facility] CLEARANCE IN PREDICTING GLOMERULAR FILTRATION RATE. ESTIMATED GFR IS NOT APPLICABLE FOR DIALYSIS PATIENTS. Specimen Blood Narrative Performed At Specimen moderately icteric [facility] Performing Organization Address City/State/Zipcode Phone Number [facility] [address] [place] [address] MED[facility] CENTER * Carbohydrate antigen 19-9 (CA 19-9) (01/29/2018 6:31 AM VEHICLE ASSEMBLER) CA 19-9 3 <34 U/mL [facility] Comment: INCORPORATED This test was performed using the Siemens (Evestra) Chemiluminescent method. Values obtained from different assay methods cannot be used interchangeably. CA19-9 levels, regardless of value, should not be interpreted as absolute evidence of the presence or absence of disease. Specimen Blood Narrative Performed At Performing Lab [facility] [address] [place] [address] Glendy Crain MD, PhD, KELVIN Performing Organization Address City/State/Zipcode Phone Number [facility], [address] [address] * CT chest with IV contrast (01/27/2018 10:08 AM VEHICLE ASSEMBLER) Specimen Narrative Performed At FINAL REPORT Ellie [facility] HISTORY: Neoplasm: chest, metastatic, suspected pancreatic mass , cancer suspected COMPARISON : None Technique : Multiple axial images of the chest were performed from the lung apices to the lung bases with the administration of IV contrast. Images were presented in both the lung and soft tissue windows. This exam was performed according to our departmental dose optimization program which includes automated exposure control, adjustment of the mA and/or kV according to patient size and/or use of iterative reconstructive technique. Comment: The thyroid gland is within normal limits. There is no hilar, mediastinal or axillary lymphadenopathy. There is coronary atherosclerosis. The visualized portions of the liver, spleen, adrenal glands and kidneys are within normal limits. There is a partially visualized biliary stent. There is also a partially visualized mass in the pancreatic head. Please refer to the CT of the abdomen 01/17/2018 for further information. There is also some pancreatic ductal dilatation. Multilevel degenerative disc changes of the visualized thoracolumbar spine are seen. There are some scattered areas of some linear subsegmental atelectasis versus scarring. There are numerous bilateral pulmonary nodules. The largest nodule in the left lung is seen [...] are most concerning for metastatic disease. An infectious/inflammatory processes is also in the differential. There is no pleural effusion, pneumothorax or infiltrate. Impression: Multiple bilateral pulmonary nodules with the largest in the right upper lobe measuring up to 1.4 x 0.8 cm. Findings are most concerning for metastatic disease. Signed: Marli Souza MD Report Verified Date/Time:01/27/2018 12:31:01 Reading Location: [facility] Diagnostic Imaging Reading Room - [place] [address] Procedure Note Interface, External Ris In - 01/27/2018 12:33 PM VEHICLE ASSEMBLER FINAL REPORT HISTORY: Neoplasm: chest, metastatic, suspected pancreatic mass , cancer suspected COMPARISON : None Technique : Multiple axial images of the chest were performed from the lung apices to the lung bases with the administration of IV contrast. Images were presented in both the lung and soft tissue windows. This exam was performed according to our departmental dose optimization program which includes automated exposure control, adjustment of the mA and/or kV according to patient size and/or use of iterative reconstructive technique. Comment: The thyroid gland is within normal limits. There is no hilar, mediastinal or axillary lymphadenopathy. There is coronary atherosclerosis. The visualized portions of the liver, spleen, adrenal glands and kidneys are within normal limits. There is a partially visualized biliary stent. There is also a partially visualized mass in the pancreatic head. Please refer to the CT of the abdomen 01/17/2018 for further information. There is also some pancreatic ductal dilatation. Multilevel degenerative disc changes of the visualized thoracolumbar spine are seen. There are some scattered areas of some linear subsegmental atelectasis versus scarring. There are numerous bilateral pulmonary nodules. The largest nodule in the left lung is seen [...] are most concerning for metastatic disease. An infectious/inflammatory processes is also in the differential. There is no pleural effusion, pneumothorax or infiltrate. Impression: Multiple bilateral pulmonary nodules with the largest in the right upper lobe measuring up to 1.4 x 0.8 cm. Findings are most concerning for metastatic disease. Signed: Marli Souza MD Report Verified Date/Time: 01/27/2018 12:31:01 Reading Location: [facility] Diagnostic [facility] 1120 Performing Organization Address City/State/Zipcode Phone Number [facility] * REPORT OF PROCEDURE - ENDOSCOPY URL (01/26/2018 6:30 PM VEHICLE ASSEMBLER) Narrative Performed At * FINE NEEDLE ASPIRATE (FNA) REQUEST (01/26/2018 5:50 PM VEHICLE ASSEMBLER) Cytology See Separate Report [facility] Specimen Fine Needle Aspirate Performing Organization Address City/State/Zipcode Phone Number [address] [address] MEDICAL CENTER * Fine Needle Aspirate by Clinician (01/26/2018 5:50 PM VEHICLE ASSEMBLER) Case Report Medical Cytology [facility] Report [facility] Case: [id number] Authorizing Provider:Ritika Schaffer MDCollected: 01/26/2018 1758 Ordering Location: [address] Received: 01/26/2018 191 Service Pathologist: Toby Conte MD Specimen:Pancreas, HOP mass FNA in CRR DIAGNOSIS HEAD OF PANCREAS MASS, FNA BY [facility] CLINICIAN (CYTOSPINS AND CELL [facility] BLOCK OF ASPIRATE): - ADENOCARCINOMA - CHRONIC PANCREATITIS, EXTENSIVE Signing Pathologist Direct Phone Line: [phone] COMMENT The cell block has extensive [facility] chronic pancreatitis and few [facility] fragments of invasive, well-differentiated adenocarcinoma. CPT Code(s) 37872, 52259 [facility] CLINICAL DATA 2.2 x 2.3 cm irregular mass [facility] identified in the head of [facility] pancreas SPECIMEN SOURCE HEAD OF PANCREAS MASS FNA [facility] GROSS DESCRIPTION Prepared cell block(A2) and 4 [facility] cytospins from 15 ml cytorich [facility] red fixative sample Collected: [id number] Received: [id number] Gross assessment was [facility] performed at Center, Department of [facility] Pathology, [address] [place] [address], Technical component was [facility] performed at [place], Department of [facility] Pathology, [address] [place] [address], Professional component [facility] was performed at [place], Department of [facility] Pathology, [address] [place] [address], Specimen Fine Needle Aspirate Narrative Performed At Performing Organization Address City/State/Zipcode Phone Number [address] [phone] [facility] * CT abd/pelvis - pancreas evaluation (01/25/2018 11:41 PM VEHICLE ASSEMBLER) Specimen Narrative Performed At FINAL REPORT [employer] EXAMINATION:CT SCAN OF THE ABDOMEN AND PELVIS CLINICAL [...] mA and/or kV according to patient's size and/or use of iterative reconstructive technique. FINDINGS: No comparison studies are available. There are 2 noncalcified nodules involving the right lower lobe. The nodules measure 8 mm and 4 mm respectively. The 8 mm nodule has subtle spiculated margins. A small 5 mm noncalcified nodule is also noted in the left lingula.A small 4 mm noncalcified nodule is noted in the left lower lobe. The heart size is normal. No evidence of a pericardial or pleural effusion. There is a small sliding-type hiatal hernia which contains predominantly mesenteric adipose tissue. The liver demonstrates relatively homogeneous contrast-enhancement. The spleen is normal in size measuring 10 cm. The common bile duct is dilated measuring up to 11 mm in diameter. The intrahepatic bile ducts are also dilated. The gallbladder is also distended without evidence of pericholecystic edema. The main pancreatic duct is also dilated measuring up to 6 mm in the region of the pancreatic neck. The main pancreatic duct is also dilated within the body and tail of the pancreas. A subtle hypodense approximately 1.4 cm nodular focus is noted in the head-uncinate process of the pancreas. The adrenal glands are normal in size and shape. No evidence of renal obstruction, nephrolithiasis or perinephric edema. The abdominal aorta is normal in caliber. Contrast also opacifies the portal venous system, mesenteric vessels, renal vessels, IVC, iliac and visualized femoral vessels. No definite pathologic vascular encasement or pathologically enlarged lymph nodes. The stomach is relatively decompressed. The loops of small bowel are also normal in caliber. The appendix is not identified with certainty. No secondary signs of appendicitis. Segments of the colon demonstrate wall thickening, most conspicuous involving the left colon. Although findings may reflect incomplete distention, a colitis would also be a consideration. There is a small adipose tissue containing umbilical hernia. No evidence of bowel involvement. The prostate gland is mildly enlarged. The bladder is decompressed. No significant intra-abdominal or pelvic free fluid. No evidence of an acute osseous abnormality or pathologic bone lesion. IMPRESSION: Vague 1.4 cm hypodense lesion involving the pancreatic head-uncinate process. Although pancreatitis would be included in the differential diagnosis, underlying pancreatic mass including pancreatic adenocarcinoma should also be strongly considered. The upstream biliary and pancreatic ductal dilatation are concerning for an associated "double duct" sign. Pancreatic protocol abdominal MRI with gadolinium and MRCP would be beneficial in further characterization. Multiple noncalcified basilar lung nodules, the largest measuring 8 mm. Postinflammatory versus neoplastic. Consider a dedicated chest CT. Colonic wall thickening. Incomplete distention versus a colitis. Underlying mucosal lesion cannot be excluded. Signed: Agata Angel MD Report Verified Date/Time:01/26/2018 00:15:45 Reading Location: [address] Reading Room Procedure Note Interface, External Ris In - 01/26/2018 12:17 AM VEHICLE ASSEMBLER FINAL REPORT EXAMINATION: CT SCAN OF THE ABDOMEN [...] mA and/or kV according to patient's size and/or use of iterative reconstructive technique. FINDINGS: No comparison studies are available. There are 2 noncalcified nodules involving the right lower lobe. The nodules measure 8 mm and 4 mm respectively. The 8 mm nodule has subtle spiculated margins. A small 5 mm noncalcified nodule is also noted in the left lingula. A small 4 mm noncalcified nodule is noted in the left lower lobe. The heart size is normal. No evidence of a pericardial or pleural effusion. There is a small sliding-type hiatal hernia which contains predominantly mesenteric adipose tissue. The liver demonstrates relatively homogeneous contrast-enhancement. The spleen is normal in size measuring 10 cm. The common bile duct is dilated measuring up to 11 mm in diameter. The intrahepatic bile ducts are also dilated. The gallbladder is also distended without evidence of pericholecystic edema. The main pancreatic duct is also dilated measuring up to 6 mm in the region of the pancreatic neck. The main pancreatic duct is also dilated within the body and tail of the pancreas. A subtle hypodense approximately 1.4 cm nodular focus is noted in the head-uncinate process of the pancreas. The adrenal glands are normal in size and shape. No evidence of renal obstruction, nephrolithiasis or perinephric edema. The abdominal aorta is normal in caliber. Contrast also opacifies the portal venous system, mesenteric vessels, renal vessels, IVC, iliac and visualized femoral vessels. No definite pathologic vascular encasement or pathologically enlarged lymph nodes. The stomach is relatively decompressed. The loops of small bowel are also normal in caliber. The appendix is not identified with certainty. No secondary signs of appendicitis. Segments of the colon demonstrate wall thickening, most conspicuous involving the left colon. Although findings may reflect incomplete distention, a colitis would also be a consideration. There is a small adipose tissue containing umbilical hernia. No evidence of bowel involvement. The prostate gland is mildly enlarged. The bladder is decompressed. No significant intra-abdominal or pelvic free fluid. No evidence of an acute osseous abnormality or pathologic bone lesion. IMPRESSION: Vague 1.4 cm hypodense lesion involving the pancreatic head-uncinate process. Although pancreatitis would be included in the differential diagnosis, underlying pancreatic mass including pancreatic adenocarcinoma should also be strongly considered. The upstream biliary and pancreatic ductal dilatation are concerning for an associated "double duct" sign. Pancreatic protocol abdominal MRI with gadolinium and MRCP would be beneficial in further characterization. Multiple noncalcified basilar lung nodules, the largest measuring 8 mm. Postinflammatory versus neoplastic. Consider a dedicated chest CT. Colonic wall thickening. Incomplete distention versus a colitis. Underlying mucosal lesion cannot be excluded. Signed: Agata Angel MD Report Verified Date/Time: 01/26/2018 00:15:45 Reading Location: [address] Reading Room Performing Organization Address City/State/[facility] Phone Number Ellie [facility] * ECG 12 lead (01/25/2018 6:08 PM VEHICLE ASSEMBLER) Specimen Narrative Performed At Ventricular Rate 67 BPM GE MUSE Atrial Rate 67 BPM P-R Interval 140 ms QRS Duration 84 ms Q-T Interval 400 ms QTC Calculation(Bazett) 422 ms P [place] 54 degrees R [place] 68 degrees T [place] 52 degrees Normal sinus rhythm Septal infarct , age undetermined Abnormal ECG No previous ECGs available Confirmed by MD DAVION, AB ([id number]) on 01/26/2018 8:44:34 PM Procedure Note Interface, External Ris In - 01/26/2018 8:44 PM VEHICLE ASSEMBLER Ventricular Rate 67 BPM Atrial Rate 67 BPM P-R Interval 140 ms QRS Duration 84 ms Q-T Interval 400 ms QTC Calculation(Bazett) 422 ms P [place] 54 degrees R [place] 68 degrees T [place] 52 degrees Normal sinus rhythm Septal infarct , age undetermined Abnormal ECG No previous ECGs available Confirmed by MD DAVION, IHAB ([id number]) on 01/26/2018 8:44:34 PM Performing Organization Address City/State/Zipcode Phone Number [facility] * Amylase (01/25/2018 5:47 PM VEHICLE ASSEMBLER) Amylase 6 (L) 25 - 125 U/L [facility] Specimen Blood Narrative Performed At Specimen markedly icteric [facility] Performing Organization Address City/[employer]/[facility] Phone Number [facility] [address] [place], [place] [phone] [facility] * Acetaminophen level (01/25/2018 5:47 PM VEHICLE ASSEMBLER) Acetaminophen Level <5.7 (L)Comment: Specimen 10.0 - 30.0 ug/mL [facility] moderately hemolyzed [facility] Specimen Blood Narrative Performed At Therapeutic Range: 10.0-30.0 g/mL [facility] Toxic Levels:>200.0 g/mL [facility] Performing Organization Address City/State/[facility] Phone Number [facility] [address] [place] [address] [facility] after 10/08/2017 Insurance Payer Benefit Subscriber ID Type Phone Address Plan / Group [employer] - MGD CARE C[employer] xxxxxxxxxxx HMO/POS HMO/POS/OP EN ACCESS Advance Directives For more information, please contact: [address] [address] Date Inactivated Comments Code Status Date Activated 09/14/2018 10:38 AM Full Code 02/21/2018 8:09 AM This code status was determined by: Patient 02/21/2018 3:54 AM Full Code 01/25/2018 5:11 PM This code status was determined by: Patient
[2018-10-09] MEDS ORDERED: SODIUM CHLORIDE 0.9% 1000ML 1,000 ML IV STA ×2 (23:59)
[2018-10-10] MEDS ORDERED: PROMETHAZINE 25MG/ NS 50ML (IV) IV ONE
[2018-10-10] MEDS ORDERED: PROMETHAZINE HCL (IM) 25 MG/ML VIAL ONE (00:13)
[2018-10-10] MEDS ORDERED: SODIUM CHLORIDE 0.9% 1000ML 2,000 ML ONE (00:13)
[2018-10-10] MEDS ORDERED: FAMOTIDINE 20 MG/2 ML VIAL IV ONE ×2 (00:14)
[2018-10-10] MEDS ORDERED: CEFTRIAXONE SOD 1 GM VIAL ONE (00:44)
[2018-10-10] MEDS ORDERED: CEFTRIAXONE SOD 1 GM VIAL IV ONE (00:45)
[2018-10-10 01:28] VITALS: BP 126/73
--- NOTE | 2018-10-10 01:30 | NUR ---
IV dc'd, cath intact no redness or edema noted.
== END 2018-10-10 01:30 | disposition home or self-care (01) ==
LOC: FSED 23:47
DX: R10.10 Upper abdominal pain, unspecified (principal); R11.0 Nausea; R53.1 Weakness; N30.91 Cystitis, unspecified with hematuria; K29.50 Unspecified chronic gastritis without bleeding; K86.1 Other chronic pancreatitis
CPT/HCPCS: 80053; 81003; 85025; 96374; 96375; 99283; J0696; J2550; J7030 ×2